=== PATIENT | female | born 1950 | race Two or more races ===

== ENCOUNTER 2024-01-29 06:38 | Inpatient (IN) | payer OTHER ==
[~2024-01-29] VITALS: Ht 167.6 cm; Wt 103.4 kg
[2024-01-29] MEDS: ceFAZolin 2 GM/D5W100ml 100 ML IV ONE (06:08)
[2024-01-29] MEDS: VANCOMYCIN HCL 1000 MG VL ONE (06:15)
[~2024-01-29 06:38] MED LIST: ATEN50TA PO; ATOR-507 PO; DAPA1TAB4 PO; ENAL1TAB42 PO; ESCI1TAB36 PO; GABA-1250 PO; LATA0.008 EACHEYE; METF-370 PO; NIFE90TA75 PO; TIMO0.5S28 EACHEYE; TRAZ-227 PO
[2024-01-29] MEDS ORDERED: KETAMINE 50mg/ML 10ml Vial 10 ML ONE (06:43)
[2024-01-29] MEDS ORDERED: ONDANSETRON HCL 4 MG/2 ML VIAL ONE (06:48)
[2024-01-29] MEDS ORDERED: GLYCOPYRROLATE 0.2 MG/ML 1ML VIAL ONE (06:48)
[2024-01-29] MEDS ORDERED: LIDOCAINE 1% INJ PF 5ML AMP ONE (06:48)
[2024-01-29] MEDS ORDERED: DexAMETHasone SOD PHOS 10MG/1ML VIAL INJ ONE (06:48)
[2024-01-29] MEDS ORDERED: PROPOFOL 10 MG/ML 20 ML IV ONE ×3 (06:48→08:43)
[2024-01-29] MEDS: TRANEXAMIC ACID 20 ML ONE (06:49)
[2024-01-29] MEDS ORDERED: KETOROLAC TROMETH 30 MG/ML 1ML VIAL ONE (06:51)
[2024-01-29] MEDS: DexAMETHasone SOD PHOS 4 MG/1ML SDV INJ ONE (07:07)
[2024-01-29] MEDS: BUPIVACAINE HCL 50 ML ONE (07:07)
[2024-01-29] MEDS: BUPIVACAINE 0.25% INJ 50ML VIAL ONE ×2 (07:07→08:25)
[2024-01-29] MEDS: EPINEPHrine HCL 1 MG/1 ML AMP ONE (07:07)
[2024-01-29] MEDS: CELECOXIB 100 MG CAP PO ONE (07:15)
[2024-01-29] MEDS: ACETAMINOPHEN IV 1000 MG/100ML (10MG/ML) IV ONE (07:15)
[2024-01-29] MEDS: PREGABALIN CAPSULE 75 MG CAP PO ONE (07:15)
[2024-01-29] MEDS: PREGABALIN CAPSULE 75 MG CAP ONE (07:18)
[2024-01-29] MEDS: CELECOXIB 100 MG CAP ONE (07:18)
[2024-01-29] MEDS: ACETAMINOPHEN IV 100 ML IV ONE (07:19)
[2024-01-29] MEDS: CEFEPIME 1GM/ 50ML 50 ML IV ONE (07:20)
[2024-01-29] MEDS ORDERED: DEXTROSE (50%) 50ML SYRG IV PRN (07:45)
[2024-01-29] MEDS ORDERED: ceFAZolin 1GM/50ML 50 ML IV SCH (07:45)
[2024-01-29] MEDS ORDERED: ePHEDrine SULFATE 50 MG/ML AMP ONE (07:54)
[2024-01-29] MEDS ORDERED: fentaNYL CITRATE 100 MCG/2 ML VL ONE (08:21)
[2024-01-29] MEDS: MORPHINE SULF PF 5 MG/10 ML VIAL ONE (08:25)
[2024-01-29] MEDS: KETOROLAC TROMETH 30 MG/ML 1ML VIAL ONE (08:25)
[2024-01-29] MEDS ORDERED: ESMOLOL HCL 10 ML IV ONE (08:28)
--- NOTE | 2024-01-29 09:20 | DVH ---
Left hip radiograph CLINICAL INDICATION: SURGERY TECHNIQUE: 1 radiographic views of the left hip were obtained. Comparison: None FINDINGS: Post left hip arthroplasty. There is no evidence of acute fracture or dislocation. The visualized joint space is well maintained. The alignment is anatomical. Small volume gas and fluid in the joint space IMPRESSION: Expected findings post left hip arthroplasty.
[2024-01-29] MEDS ORDERED: NALOXONE HCL 0.4 MG/ML VIAL IV PRN (09:30)
[2024-01-29] MEDS ORDERED: FLUMAZENIL 0.1 MG/ML INJ 10ML MDV IV PRN (09:30)
[2024-01-29] MEDS ORDERED: hydrALAZINE HCL 20 MG/ML VL IV PRN (09:30)
[2024-01-29] MEDS ORDERED: ONDANSETRON HCL 4 MG/2 ML VIAL IV PRN (09:30)
[2024-01-29] MEDS ORDERED: HYDROmorphone HCL 2 MG/ML VL/or syr IV PRN (09:30)
[2024-01-29] MEDS ORDERED: fentaNYL CITRATE 100 MCG/2 ML VL IV PRN (09:30)
[2024-01-29] MEDS ORDERED: ePHEDrine SULFATE 50 MG/ML AMP IV PRN (09:30)
--- NOTE | 2024-01-29 10:17 | DVH ---
CLINICAL INDICATION: sp Left JOSE TECHNIQUE: XY PELVIS AP Comparison: None FINDINGS/IMPRESSION: There is no evidence of acute fracture or dislocation. Left total hip arthroplasty. The alignment is anatomical. There is no radiopaque foreign body.
--- NOTE | 2024-01-29 10:18 | DVHHP2 ---
History of Present Illness History of Present Illness A 73-year-old female patient with multiple comorbidities; who was admitted after elective surgery of left hip total arthroplasty. The patient was seen and examined in PACU. Cardiovascular: HTN, hyperipidemia Psych: Depression Endocrine: Diabetes (Mellitus Type 2), Other (Morbid obesity) Past Medical History Glaucoma Smoke: No ALCOHOL: none Drugs: None Review of Systems Other Left hip pain Allergies: Coded Allergies: Sulfa Antibiotics (Verified Allergy, Intermediate, Itchiness, 01/27/24) Medications Current Medications Medications Dose Ordered Sig/Khurram Route Start Time Stop Time Status Last Admin Dose Admin Enalapril Maleate 20 mg DAILY PO 01/29/24 10:00 Gabapentin 300 mg TID PO 01/29/24 14:00 UNV Latanoprost 1 drop QPM EACHEYE 01/29/24 18:00 Patient Own Medication 50 mg DAILY PO 01/29/24 10:00 UNV Patient Own Medication 1 tab QPM PO 01/29/24 18:00 UNV Patient Own Medication 1 tab DAILY PO 01/29/24 10:00 UNV Patient Own Medication 1 tab DAILY PO 01/29/24 10:00 UNV Patient Own Medication 1 drop QAM EACHEYE 01/30/24 07:00 UNV Lactated Ringer's 1,000 ml @ 100 mls/hr Q10H IV 01/29/24 07:45 Sodium Chloride 10 ml Q8HR IV 01/29/24 14:00 Cefazolin Sodium 50 ml @ 50 mls/hr Q6H IV 01/29/24 07:45 01/29/24 20:44 UNV Oxycodone/ Acetaminophen 1 tab Q4HP PRN PO 01/29/24 07:45 Hydromorphone HCl 1 mg Q2HP PRN IV 01/29/24 07:45 Ondansetron HCl 4 mg Q6HP PRN IV 01/29/24 07:45 Docusate Sodium 100 mg Q12HR PO 01/29/24 10:00 Enoxaparin Sodium 40 mg DAILY SC 01/29/24 10:00 UNV Diagnostic Test (Pha) 1 strip ACHS 01/29/24 11:30 Insulin Human Regular ACHS SC 01/29/24 11:30 Dextrose 50 ml UD PRN IV 01/29/24 07:45 Cefazolin Sodium/ Dextrose 50 ml @ 50 mls/hr Q8HR IV 01/29/24 14:00 01/30/24 06:59 UNV Cefepime HCl 50 ml @ 12.5 mls/hr DAILY IV 01/29/24 10:00 UNV Hydralazine HCl 5 mg Q10M PRN IV 01/29/24 09:30 01/29/24 10:21 Fentanyl Citrate 25 mcg Q1HP PRN IV 01/29/24 09:30 01/29/24 09:31 UNV Hydromorphone HCl 0.5 mg Q10M PRN IV 01/29/24 09:30 01/29/24 10:11 UNV Oxycodone HCl 10 mg ONCE PRN PO 01/29/24 09:30 UNV Exam Vital Signs Vital Signs Date Time Temp Pulse Resp B/P (MAP) Pulse Ox O2 Delivery O2 Flow Rate FiO2 01/29/24 06:47 97.7 67 21 145/79 (101) 97 97.7 Exam Female nursing staff as a restrike hammer operator General Appearance: Alert, Oriented X3, Cooperative, No acute distress HEENT: Atraumatic Respiratory: Clear to auscultation, Normal air movement Cardiovascular: Regular rate, Normal S1, Normal S2 Abdominal: Normal bowel sounds, Soft, No tenderness Extremities: Other (Clean surgical dressing over left hip with no swelling but mild tenderness) Neuro: Normal speech, Cranial nerves 3-12 NL Psych/Mental Status: Mental status NL, Mood NL Labs/Xrays Imaging studies results and lab results reviewed Labs Test 01/29/24 09:46 Range/Units POC Glucose 139 H 70-106 mg/dl Assessment/Plan Assessment/Plan A 73-year-old female patient with multiple comorbidities; who was admitted after elective surgery of left hip total arthroplasty. The patient was seen and examined in PACU. #Left hip arthritis status post total hip arthroplasty on January 29, 2024; orthopedic surgery is following; operative note is not ready yet; physical therapy consulted; continue pain management as indicated #Normocytic anemia; most likely blood loss anemia; continue monitoring #Diabetes mellitus type 2 with diabetic neuropathy; continue insulin sliding scale with hypoglycemia protocol; continue gabapentin; continue monitoring #Suspected MIRA; most likely vasomotor nephropathy; avoid nephrotoxic agents; continue monitoring #Essential hypertension; continue antihypertensive medications and adjust accordingly; continue monitoring #Dyslipidemia; continue statin; continue monitoring #Glaucoma; continue eyedrops; continue monitoring #Depression; no suicide ideation/plan; continue antidepressant; continue monitoring #Morbid obesity with metabolic syndrome; counseled the patient on the importance of adopting healthy lifestyle with diet and exercise in order to lose weight; continue monitoring #Discharge planning; consulted Shirt Cleaner; continue monitoring Goals of care discussion for 20 minutes; full code. Late Entry. This medical document was created using an electronic medical record system with computerized dictation system. Although this document has been carefully reviewed, there might still be some phonetic and typographical errors. These areas are purely typographical due to imperfections of the software programs, and do not reflect any compromise in the patient's medical care. Plan discussed with: Patient, Other (Nurse) Date of Service: Jan 29, 2024 Billing Provider: DEVYN ARREAGA MD Common Visit Codes: 11613-PTCLMIE INP/OBS CARE (HIGH) Secondary Visit Codes: 50996-[id number] CARE PLAN 30 MINUTES (20 minutes) DEVYN ARREAGA MD Jan 29, 2024 10:18
[2024-01-29] MEDS: HYDROmorphone HCL 2 MG/ML VL/or syr ONE (10:22)
[2024-01-29 14:54] LABS: Basophils # (auto) 0 10 ^3/uL (0-0.2); Basophils % (auto) 0.1 % (0.0-2.0); Eosinophils # (auto) 0 10 ^3/uL (0-0.8); Hematocrit 35.4 % (36.0-46.0); Hemoglobin 11.5 g/dL (12.2-16.2); Lymphocytes % (auto) 7.6 % (10.0-50.0); Mean Corpuscular Hemoglobin 27.9 pg (28.0-32.0); Mean Corpuscular Hgb Conc. 32.5 g/dL (32.0-36.0); Mean Corpuscular Volume 85.9 fL (80.0-100.0); Monocytes # (auto) 0.2 10 ^3/uL (0-1.3); Monocytes % (auto) 1.5 % (0.0-12.0); Neutrophils # (auto) 11.6 10 ^3/uL (1.6-8.6); Neutrophils % (auto) 90.8 % (37.0-80.0); Platelet Count (auto) 354 10^3/uL (140-450); Red Blood Cells 4.12 10^6/uL (4.0-5.20); Red Cell Distribution Width 14.7 % (11.8-14.3); White Blood Cell 12.8 10^3/uL (4.4-10.8)
[2024-01-29 15:16] LABS: Alanine Aminotransferase 21 U/L (7-40); Albumin 3.7 g/dL (3.2-4.8); Alkaline Phosphatase 56 U/L (46-116); Anion Gap 6 (5-15); Aspartate Aminotransferase 26 U/L (13-40); BUN/Creatinine Ratio 16.2 (10.0-20.0); Bilirubin, Total 0.3 mg/dL (0.2-1.0); Blood Urea Nitrogen 16 mg/dL (9-23); Calcium 9.2 mg/dL (8.7-10.4); Carbon Dioxide 29 mmol/L (20-31); Chloride 101 mmol/L (98-107); Potassium 4.7 mmol/L (3.5-5.1); Sodium 136 mmol/L (136-145); Total Protein 7.4 g/dL (5.7-8.2)
[2024-01-29 15:18] LABS: Glucose 197 mg/dL (74-106)
[2024-01-29 15:22] VITALS: BP 146/70; PULSE 68; RESP 16; TEMP 97.6; O2SAT 95
[2024-01-29] MEDS ORDERED: ENAL1TAB42 PO (16:22)
[2024-01-29 17:00] VITALS: BP 146/70; PULSE 68; RESP 16; TEMP 97.6; O2SAT 95
[2024-01-29] MEDS: ACCU-CHEK COMFORT CURVE STRIP VI SCH (17:13)
[2024-01-29] MEDS ORDERED: LATANOPROST 0.005 % OPTH(EYE) SOL 2.5ML EACHEYE SCH (18:00)
[2024-01-29] MEDS: LACTATED RINGER'S 1,000 ML IV SCH (18:17)
[2024-01-29] MEDS: InsuLIN REG 1unit/0.01ml Soln (100units/ml) SC SCH (18:18)
[2024-01-29 21:00] VITALS: BP 128/66; PULSE 77; RESP 18; TEMP 98.7; O2SAT 95
[2024-01-29] MEDS: DOCUSATE SOD 100 MG CAP PO SCH (21:48)
[2024-01-29] MEDS: GABAPENTIN 300 MG CAP PO SCH (21:48)
[2024-01-29] MEDS: LATANOPROST 0.005 % OPTH(EYE) SOL 2.5ML EACHEYE SCH (21:49)
[2024-01-29] MEDS: ATORVASTATIN 20 MG TAB PO SCH (21:49)
[2024-01-29] MEDS: SODIUM CHLOR 0.9% PF (SALINE LOCK) 10ML VIAL/SYR IV SCH (22:00)
[2024-01-29] MEDS: ceFAZolin 2 GM/D5W50ml 50 ML IV SCH (22:37)
[2024-01-30] VITALS (8 sets, daily range): BP systolic 134–151; BP diastolic 54–64; PULSE 57–70; RESP 16–19; TEMP 97.5–98.4; O2SAT 94–100
--- NOTE | 2024-01-30 05:09 | DVHPN2 ---
Subjective Controlled left hip pain; tolerated physical therapy Reviewed: Care Plan, H&P, Labs, Medications, Previous Orders, Radiology, Other (Consultation) Changes from previous H/P or p: Changes Objective Vitals Vital Signs Date Time Temp Pulse Resp B/P (MAP) Pulse Ox O2 Delivery O2 Flow Rate FiO2 01/30/24 03:00 98.4 69 18 134/62 99 2.0 28 98.4 01/30/24 01:45 Nasal BiPAP Mask Intake/Output Intake and Output 01/30/24 07:00 Intake Total 50 ml Balance 50 ml Intake Oral 0 ml IV Total 50 ml # Voids 1 # Bowel Movements 1 Exam Female nursing staff as claim investigator General Appearance: Alert, Oriented X3, Cooperative, No acute distress HEENT: Atraumatic Lungs: Clear to auscultation, Normal air movement Cardiovascular: Regular rate, Normal S1, Normal S2 Abdomen: Normal bowel sounds, Soft, No tenderness Genitourinary: Other (Jones's catheter) Extremities: Other (Clean dressing of left hip with mild swelling/tenderness; no discharge/bleeding) Neuro: Normal speech, Cranial nerves 3-12 NL Psych/Mental Status: Mental status NL Medications Current Medications Medications Dose Ordered Sig/Khurram Route Start Time Stop Time Status Last Admin Dose Admin Enalapril Maleate 20 mg DAILY PO 01/29/24 10:00 Gabapentin 300 mg TID PO 01/29/24 14:00 01/29/24 21:48 300 MG Atenolol 50 mg DAILY PO 01/30/24 10:00 Atorvastatin Calcium 40 mg HS PO 01/29/24 22:00 01/29/24 21:49 40 MG Citalopram Hydrobromide 20 mg DAILY PO 01/30/24 10:00 Nifedipine 90 mg DAILY PO 01/30/24 10:00 Timolol Maleate 1 drop QAM EACHEYE 01/30/24 07:00 Lactated Ringer's 1,000 ml @ 100 mls/hr Q10H IV 01/29/24 07:45 01/29/24 18:17 100 MLS/HR Sodium Chloride 10 ml Q8HR IV 01/29/24 14:00 01/29/24 22:00 10 ML Oxycodone/ Acetaminophen 1 tab Q4HP PRN PO 01/29/24 07:45 Hydromorphone HCl 1 mg Q2HP PRN IV 01/29/24 07:45 Ondansetron HCl 4 mg Q6HP PRN IV 01/29/24 07:45 Docusate Sodium 100 mg Q12HR PO 01/29/24 10:00 01/29/24 21:48 100 MG Enoxaparin Sodium 40 mg DAILY SC 01/29/24 10:00 Diagnostic Test (Pha) 1 strip ACHS 01/29/24 11:30 01/29/24 22:00 1 STRIP Insulin Human Regular ACHS SC 01/29/24 11:30 01/29/24 22:18 4 UNITS Dextrose 50 ml UD PRN IV 01/29/24 07:45 Cefazolin Sodium/ Dextrose 50 ml @ 50 mls/hr Q8HR IV 01/29/24 14:00 01/30/24 06:59 01/29/24 22:37 50 MLS/HR Cefepime HCl 50 ml @ 12.5 mls/hr DAILY IV 01/29/24 10:00 Oxycodone HCl 10 mg ONCE PRN PO 01/29/24 09:30 Latanoprost 1 drop HS EACHEYE 01/29/24 22:00 01/29/24 21:49 1 DROP Laboratory Results Laboratory Tests 01/29/24 14:16 Chemistry Test 01/29/24 14:16 Albumin 3.7 g/dL (3.2-4.8) Calcium Level 9.2 mg/dL (8.7-10.4) Total Protein 7.4 g/dL (5.7-8.2) LFT Test 01/29/24 14:16 Alanine Aminotransferase (ALT) 21 U/L (7-40) Alkaline Phosphatase 56 U/L (46-116) Aspartate Amino Transferase (AST) 26 U/L (13-40) Total Bilirubin 0.3 mg/dL (0.2-1.0) Labs and/or images reviewed: Labs reviewed by me, Image(s) reviewed by me Assessment/Plan Assessment/Plan A 73-year-old female patient with multiple comorbidities; who was admitted after elective surgery of left hip total arthroplasty. The patient was seen and examined in PACU. #Left hip osteoarthritis with left hip pain status post total hip arthroplasty on January 29, 2024; orthopedic surgery is following; physical therapy is following; continue pain management as indicated #Normocytic anemia; most likely blood loss anemia; continue monitoring #MIRA with hyperkalemia; likely vasomotor nephropathy; in the setting of acute urinary retention; very mild; Jones's catheter; avoid nephrotoxic agents; continue monitoring #Acute urinary retention; Jones's catheter inserted; ordered renal ultrasound; continue monitoring #Diabetes mellitus type 2 with diabetic neuropathy; continue insulin sliding scale with hypoglycemia protocol; continue gabapentin; continue monitoring #Essential hypertension; continue antihypertensive medications and adjust accordingly; continue monitoring #Dyslipidemia; continue statin; continue monitoring #Glaucoma; continue eyedrops; continue monitoring #Depression; no suicide ideation/plan; continue antidepressant; continue monitoring #Morbid obesity with metabolic syndrome; counseled the patient on the importance of adopting healthy lifestyle with diet and exercise in order to lose weight; continue monitoring #Discharge planning; Stopping Builder is following; continue monitoring Late Entry. This medical document was created using an electronic medical record system with computerized dictation system. Although this document has been carefully reviewed, there might still be some phonetic and typographical errors. These areas are purely typographical due to imperfections of the software programs, and do not reflect any compromise in the patient's medical care. Plan discussed with: Patient, Other (Nurse) My Orders Orders - DEVYN ARREAGA MD Procedure Category Date Status Time Complete Blood Count LAB 01/30/24 Logged 04:00 Comprehensive LAB 01/30/24 Logged Metabolic Panel 04:00 Code Status CODE 01/29/24 Transmitted 19:15 Complete Blood Count LAB 01/31/24 Verified 04:00 Comprehensive LAB 01/31/24 Verified Metabolic Panel 04:00 Date of Service: Jan 30, 2024 Billing Provider: DEVYN ARREAGA MD Common Visit Codes: [id number] INP/OBS CARE(HIGH) DEVYN ARREAGA MD Jan 30, 2024 05:09
[2024-01-30] MEDS: TIMOLOL MAL 0.5% OPTH(EYE) SOL 5ML EACHEYE SCH (06:23)
--- NOTE | 2024-01-30 08:10 | DVHOP2 ---
Operative Report - 2 Report Details Date: 01/29/24 Preop Diagnosis: Left hip osteoarthritis, morbid obesity BMI above 39 Postop Diagnosis: as above Surgeon: Elton Madera MD Performance Improvement Analyst: Rock HEREDIA Anesthesiologist: Michelet HO Anesthesia: Regional Implant: [employer] see implant records Consent: The patient was informed of the risks and benefits of the procedure. These include but are not limited to complications of anesthesia, postoperative infection, incomplete relief of symptoms, recurrence of symptoms, damage to blood vessels, nerves and tendons, deep venous thrombosis, pulmonary embolism and possible need for repeat surgery in the future. Estimated Blood Loss: 300 cc Name of Procedure Performed Right total hip arthroplasty using computer navigation Procedure Details Procedure Details: FINDINGS: Extensive degenerative disease with grade IV changes INDICATION: This patient has failed non-operative treatments for hip arthritis and is now indicated for a total hip replacement. Preoperatively in the waiting area as well as in the office, I had a long discussion with the patient regarding the plan, the expected outcome, the risks, benefits, and alternatives of surgery. The risks include, but are not limited to, infection (which may require future surgery and removal of implants) , bleeding (which may require a transfusion), damage to nerves, arteries, veins, tendons, muscles and other adjacent structures. Also discussed the possibilities of dislocation, leg-length discrepancy, intraoperative fractures, implant loosening, heterotopic bone formation, and revision for variety of reasons, and medical complications etc. This was discussed at length and consent has been obtained. DESCRIPTION OF PROCEDURE: In the preoperative holding area, the consent was reviewed and the appropriate extremity was verified by the patient and marked with my initials. The patient was then transferred to the operating theatre. Appropriate anesthetia was induced. All bony prominences were well padded. A time out was performed verifying the side and site of surgery according to standard protocol. Preoperative antibiotics were given. Tranexamic acid was given. The patient was then placed in the lateral decubitus position and fixed with rigid pelvic fixation. All bony prominences were well padded and an axillary roll was placed. The affected hip area was then prepped and draped in the usual sterile fashion. Using an 11-blade, three stab incisions were made over the iliac crest. Two threaded guide pins were inserted into the crest confirming to be in bone. The pelvic array was attached to the pins and tightened. We made a standard posterolateral incision sharply through the skin and carried our dissection down through subcutaneous tissue to the underlying fascia achieving hemostasis where necessary. We incised the fascia in line with our incision. We identified and protected the sciatic nerve. We took down the external rotators and hip capsule from their insertion into the greater trochanter, tagged them and retracted them posteriorly for further protection of the sciatic nerve. A check point was placed into the greater trochanter and the hip center and leg length length were registered. We then dislocated the femoral head and performed an osteotomy of the femoral neck in accordance with our pre-operative plan. The labrum was excised with a long-handle knife, and we exposed the acetabular rim and cotyloid fossa. We then reamed up to our final size in accordance with the preoperative plan. We copiously irrigated and then impacted the final cup into position. We confirmed the position with the robotic navigation guidance. We placed acetabular dome screws into the posterior-superior quadrant in the usual fashion. We irrigated the cup and impacted the liner, checking to make sure it was well seated. Attention was then turned to the femur. We used a box osteotome followed by a canal finder to gain entry to the canal. Intramedullary contents were suctioned and care was taken to ensure they did not touch the tissues. We sequentially reamed until good cortical contact, then broached up to out final size. We trialed with the appropriate femoral neck and head and reduced the hip. The hip was taken through a full range of motion. The hip soft tissues were examined in extension and external rotation, the anterior capsule and IT band were palpated, and combined anteversion was determined to be 40 degrees. The hip was stable at maximum flexion, at 90 degrees of flexion and 45 degrees of internal rotation and the position of sleep. Leg lengths were restored as shown using the computer navigation, and the trial LTC matched preoperative and intraoperative templating. The hip was then dislocated and trial components removed. We copiously irrigated the wound and impacted the final femoral stem into position. The femoral head was impacted onto a clean and dry trunion and confirmed to be seated. The hip was reduced ensuring to tissues in the acetabular cup. We again brought it through a full functional range of motion and there was no evidence for dislocation, instability, or impingement. The checkpoint was removed. A dilute betadine solution (17.5mL in 500mL saline) was used to wash the joint and left to sit for 3 minutes. This was then irrigated out with copious amounts of pulse lavage. We sprinkled 1g vancomycin powder below the fascia and 1g above the fascia. We copiously irrigated the wound and soft tissues. The short external rotators and capsule were repaired to the greater trochanter through drill holes, and the quadratus was repaired. We palpated the sciatic nerve in continuity without tension. The fascia was closed with vicryl and a barbed suture. We closed over the fascia with vicryl suture and re-approximated the skin with brittni. A sterile dressing was placed. We returned the patient to the supine position. We verified all lower extremity compartments were soft and compressible and that we had intact distal pulses and checked our leg length congregation. We took an AP Pelvis in the operating room, which we reviewed prior to transfer. The patient was then transferred to the recovery room in stable condition. Condition Good Disposition Still a Patient ELTON MADERA MD Jan 30, 2024 08:10
--- NOTE | 2024-01-30 08:13 | DVHPN2 ---
Progress Note Date Seen: Jan 30, 2024 Medical Necessity Reason Pt with a Central, PICC or Fol: No Subjective Patient reports: No new complaints (patient has not gotten out of bed yet) Objective vital signs Vital Sign Date Time Temp Pulse Resp B/P (MAP) Pulse Ox O2 Delivery O2 Flow Rate FiO2 01/30/24 05:00 98.3 68 19 146/59 (88) 100 98.3 01/30/24 03:00 2.0 28 01/30/24 01:45 Nasal BiPAP Mask Total Intake and Output 01/29/24 01/29/24 01/30/24 15:00 23:00 07:00 Intake Total 0 ml 630 ml Balance 0 ml 630 ml medications Current Medications Medications Dose Ordered Sig/Khurram Route Start Time Stop Time Status Last Admin Dose Admin Enalapril Maleate 20 mg DAILY PO 01/29/24 10:00 Gabapentin 300 mg TID PO 01/29/24 14:00 01/30/24 06:18 300 MG Atenolol 50 mg DAILY PO 01/30/24 10:00 Atorvastatin Calcium 40 mg HS PO 01/29/24 22:00 01/29/24 21:49 40 MG Citalopram Hydrobromide 20 mg DAILY PO 01/30/24 10:00 Nifedipine 90 mg DAILY PO 01/30/24 10:00 Timolol Maleate 1 drop QAM EACHEYE 01/30/24 07:00 Lactated Ringer's 1,000 ml @ 100 mls/hr Q10H IV 01/29/24 07:45 01/30/24 06:20 100 MLS/HR Sodium Chloride 10 ml Q8HR IV 01/29/24 14:00 01/30/24 06:23 10 ML Oxycodone/ Acetaminophen 1 tab Q4HP PRN PO 01/29/24 07:45 Hydromorphone HCl 1 mg Q2HP PRN IV 01/29/24 07:45 Ondansetron HCl 4 mg Q6HP PRN IV 01/29/24 07:45 Docusate Sodium 100 mg Q12HR PO 01/29/24 10:00 01/29/24 21:48 100 MG Enoxaparin Sodium 40 mg DAILY SC 01/29/24 10:00 Diagnostic Test (Pha) 1 strip ACHS 01/29/24 11:30 01/30/24 06:29 1 STRIP Insulin Human Regular ACHS SC 01/29/24 11:30 01/29/24 22:18 4 UNITS Dextrose 50 ml UD PRN IV 01/29/24 07:45 Cefepime HCl 50 ml @ 12.5 mls/hr DAILY IV 01/29/24 10:00 Oxycodone HCl 10 mg ONCE PRN PO 01/29/24 09:30 Latanoprost 1 drop HS EACHEYE 01/29/24 22:00 01/29/24 21:49 1 DROP laboratory and microbiology Test 01/30/24 06:45 Range/Units Serum Glucose Pending Problem List/Assessment/Plan Problem List/Assessment/Plan 73 yo F with multiple medical issues sp complex Left JOSE due to her BMI being above 39 1. WBAT with walker 2. PT 3. pain control 4. dc planning when stable Plan discussed with: Patient My Orders My Orders Orders - HAMIDA MADERA MD Procedure Category Date Status Time L Hip 1v Xray XY 01/29/24 Resulted 08:15 * Desktop Support Engineer CONS 01/29/24 Transmitted Consult Apply Ice To Affected JANAY 01/29/24 In Process Area 09:30 Out Of Bed Ambulate JANAY 01/29/24 In Process 09:30 Up In Chair Qid JANAY 01/29/24 In Process 09:30 Consistent DIET 01/29/24 Transmitted Carb(Ccho)Diabetes Dinner Latanoprost (Xalatan) PHA 01/29/24 In Process 22:00 HAMIDA MADERA MD Jan 30, 2024 08:13
[2024-01-30 08:21] LABS: Basophils # (auto) 0 10 ^3/uL (0-0.2); Eosinophils # (auto) 0 10 ^3/uL (0-0.8); Eosinophils % (auto) 0.1 % (0.0-7.0); Hematocrit 32.3 % (36.0-46.0); Hemoglobin 10.4 g/dL (12.2-16.2); Lymphocytes # (auto) 2.4 10 ^3/uL (0.4-5.4); Lymphocytes % (auto) 19.3 % (10.0-50.0); Mean Corpuscular Hgb Conc. 32.2 g/dL (32.0-36.0); Mean Corpuscular Volume 86.8 fL (80.0-100.0); Monocytes # (auto) 1.5 10 ^3/uL (0-1.3); Monocytes % (auto) 12.6 % (0.0-12.0); Neutrophils # (auto) 8.3 10 ^3/uL (1.6-8.6); Platelet Count (auto) 316 10^3/uL (140-450); Red Blood Cells 3.73 10^6/uL (4.0-5.20); Red Cell Distribution Width 14.6 % (11.8-14.3); White Blood Cell 12.3 10^3/uL (4.4-10.8)
[2024-01-30 08:48] LABS: Alanine Aminotransferase 18 U/L (7-40); Albumin 3.5 g/dL (3.2-4.8); Alkaline Phosphatase 50 U/L (46-116); Anion Gap 7 (5-15); Aspartate Aminotransferase 25 U/L (13-40); BUN/Creatinine Ratio 18.4 (10.0-20.0); Bilirubin, Total 0.3 mg/dL (0.2-1.0); Blood Urea Nitrogen 18 mg/dL (9-23); Calcium 9.2 mg/dL (8.7-10.4); Carbon Dioxide 28 mmol/L (20-31); Chloride 102 mmol/L (98-107); Glucose 91 mg/dL (74-106); Sodium 137 mmol/L (136-145); Total Protein 6.9 g/dL (5.7-8.2)
[2024-01-30 08:56] LABS: Potassium 5.3 mmol/L (3.5-5.1)
[2024-01-30] MEDS: CEFEPIME 1GM/ 50ML 50 ML IV SCH (09:51)
[2024-01-30] MEDS: ENOXAPARIN SOD 40 MG/0.4 ML SYRINGE SC SCH (09:52)
[2024-01-30] MEDS: NIFEdipine ER 30 MG TAB PO SCH (09:53)
[2024-01-30] MEDS: ENALAPRIL MALEATE 10 MG TAB PO SCH (09:53)
[2024-01-30] MEDS: CITALOPRAM HYDROBR 20 MG TAB PO SCH (09:54)
[2024-01-30] MEDS: oxyCODONE HCL 5MG TAB PO PRN (09:55)
[2024-01-30] MEDS: ATENOLOL 25 MG TAB PO SCH (11:51)
[2024-01-30 16:33] LABS: Anion Gap 3 (5-15); Chloride 105 mmol/L (98-107); Sodium 140 mmol/L (136-145)
[2024-01-30 16:34] LABS: Calcium 9.3 mg/dL (8.7-10.4)
[2024-01-30 16:39] LABS: Glucose 100 mg/dL (74-106)
[2024-01-30 16:40] LABS: BUN/Creatinine Ratio 18.5 (10.0-20.0); Blood Urea Nitrogen 17 mg/dL (9-23)
[2024-01-30 16:44] LABS: Carbon Dioxide 32 mmol/L (20-31); Potassium 5.3 mmol/L (3.5-5.1)
[2024-01-30] MEDS: OXYCODONE W/ ACETAMINOPHEN 5/325MG TABLET PO PRN (22:25)
[2024-01-31 05:00] VITALS: BP 135/58; PULSE 61; RESP 17; TEMP 97.8; O2SAT 99
[2024-01-31 08:02] LABS: Basophils # (auto) 0.1 10 ^3/uL (0-0.2); Basophils % (auto) 0.5 % (0.0-2.0); Eosinophils # (auto) 0.2 10 ^3/uL (0-0.8); Eosinophils % (auto) 1.5 % (0.0-7.0); Hematocrit 31.1 % (36.0-46.0); Lymphocytes # (auto) 2.5 10 ^3/uL (0.4-5.4); Lymphocytes % (auto) 24.4 % (10.0-50.0); Mean Corpuscular Hemoglobin 27.8 pg (28.0-32.0); Mean Corpuscular Hgb Conc. 32.3 g/dL (32.0-36.0); Mean Corpuscular Volume 86.2 fL (80.0-100.0); Monocytes # (auto) 1.4 10 ^3/uL (0-1.3); Monocytes % (auto) 13.4 % (0.0-12.0); Neutrophils # (auto) 6.1 10 ^3/uL (1.6-8.6); Neutrophils % (auto) 60.2 % (37.0-80.0); Nucleated Red Blood Cells % 0.1 %; Platelet Count (auto) 294 10^3/uL (140-450); Red Blood Cells 3.61 10^6/uL (4.0-5.20); Red Cell Distribution Width 14.7 % (11.8-14.3); White Blood Cell 10.1 10^3/uL (4.4-10.8)
[2024-01-31 08:12] LABS: Alanine Aminotransferase 14 U/L (7-40); Albumin 3.3 g/dL (3.2-4.8); Alkaline Phosphatase 48 U/L (46-116); Anion Gap 2 (5-15); Aspartate Aminotransferase 22 U/L (13-40); BUN/Creatinine Ratio 12.7 (10.0-20.0); Blood Urea Nitrogen 10 mg/dL (9-23); Chloride 106 mmol/L (98-107); Glucose 89 mg/dL (74-106); Potassium 4.7 mmol/L (3.5-5.1); Sodium 140 mmol/L (136-145)
[2024-01-31 08:13] LABS: Bilirubin, Total 0.4 mg/dL (0.2-1.0); Total Protein 6.6 g/dL (5.7-8.2)
[2024-01-31 08:15] LABS: Carbon Dioxide 32 mmol/L (20-31)
--- NOTE | 2024-01-31 08:35 | DVHPN2 ---
Progress Note Date Seen: Jan 31, 2024 Medical Necessity Reason Pt with a Central, PICC or Fol: No Subjective Patient reports: No new complaints (pain as expected; worked with PT) Objective vital signs Vital Sign Date Time Temp Pulse Resp B/P (MAP) Pulse Ox O2 Delivery O2 Flow Rate FiO2 01/31/24 08:00 Room Air* 0 21 01/31/24 05:00 97.8 61 17 135/58 (83) 99 97.8 Total Intake and Output 01/30/24 01/30/24 01/31/24 15:00 23:00 07:00 Intake Total 50 ml 1780 ml 200 ml Output Total 1025 ml 2100 ml Balance 50 ml 755 ml -1900 ml medications Current Medications Medications Dose Ordered Sig/Khurram Route Start Time Stop Time Status Last Admin Dose Admin Enalapril Maleate 20 mg DAILY PO 01/29/24 10:00 01/30/24 09:53 20 MG Gabapentin 300 mg TID PO 01/29/24 14:00 01/31/24 05:48 300 MG Atenolol 50 mg DAILY PO 01/30/24 10:00 01/30/24 11:51 50 MG Atorvastatin Calcium 40 mg HS PO 01/29/24 22:00 01/30/24 22:25 40 MG Citalopram Hydrobromide 20 mg DAILY PO 01/30/24 10:00 01/30/24 09:54 20 MG Nifedipine 90 mg DAILY PO 01/30/24 10:00 01/30/24 09:53 90 MG Timolol Maleate 1 drop QAM EACHEYE 01/30/24 07:00 Lactated Ringer's 1,000 ml @ 100 mls/hr Q10H IV 01/29/24 07:45 01/30/24 18:43 100 MLS/HR Sodium Chloride 10 ml Q8HR IV 01/29/24 14:00 01/31/24 05:54 10 ML Oxycodone/ Acetaminophen 1 tab Q4HP PRN PO 01/29/24 07:45 01/30/24 22:25 1 TAB Hydromorphone HCl 1 mg Q2HP PRN IV 01/29/24 07:45 Ondansetron HCl 4 mg Q6HP PRN IV 01/29/24 07:45 Docusate Sodium 100 mg Q12HR PO 01/29/24 10:00 01/30/24 22:25 100 MG Enoxaparin Sodium 40 mg DAILY SC 01/29/24 10:00 01/30/24 09:52 40 MG Diagnostic Test (Pha) 1 strip ACHS 01/29/24 11:30 01/31/24 05:55 1 STRIP Insulin Human Regular ACHS SC 01/29/24 11:30 01/30/24 22:38 3 UNITS Dextrose 50 ml UD PRN IV 01/29/24 07:45 Cefepime HCl 50 ml @ 12.5 mls/hr DAILY IV 01/29/24 10:00 01/30/24 09:51 12.5 MLS/HR Oxycodone HCl 10 mg ONCE PRN PO 01/29/24 09:30 01/30/24 09:55 10 MG Latanoprost 1 drop HS EACHEYE 01/29/24 22:00 01/30/24 22:26 1 DROP laboratory and microbiology Laboratory Tests 01/31/24 06:56 Test 01/31/24 06:56 Range/Units Serum Glucose 89 74-106 mg/dL Problem List/Assessment/Plan Problem List/Assessment/Plan 73 yo F with multiple medical issues sp complex Left JOSE due to her BMI being above 39 1. WBAT with walker 2. PT 3. pain control 4. dc planning when stable -- patient wants SNF due to not having help at home Plan discussed with: Patient HAMIDA MADERA MD Jan 31, 2024 08:35
[2024-01-31 09:00] VITALS: BP 128/64; PULSE 68; RESP 17; TEMP 98.1; O2SAT 96
--- NOTE | 2024-01-31 09:53 | DVHPN2 ---
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 General Appearance: Alert, Oriented X3, Cooperative, No acute distress HEENT: Atraumatic Lungs: Clear to auscultation, Normal air movement Cardiovascular: Regular rate, Normal S1, Normal S2 Abdomen: Normal bowel sounds, Soft, No tenderness Genitourinary: Other (Jones's catheter) Extremities: Other (Clean dressing of left hip with mild swelling/tenderness; no discharge/bleeding) Neuro: Normal speech, Cranial nerves 3-12 NL Psych/Mental Status: Mental status NL Medications Current Medications Medications Dose Ordered Sig/Khurram Route Start Time Stop Time Status Last Admin Dose Admin Enalapril Maleate 20 mg DAILY PO 01/29/24 10:00 01/30/24 09:53 20 MG Gabapentin 300 mg TID PO 01/29/24 14:00 01/31/24 05:48 300 MG Atenolol 50 mg DAILY PO 01/30/24 10:00 01/30/24 11:51 50 MG Atorvastatin Calcium 40 mg HS PO 01/29/24 22:00 01/30/24 22:25 40 MG Citalopram Hydrobromide 20 mg DAILY PO 01/30/24 10:00 01/30/24 09:54 20 MG Nifedipine 90 mg DAILY PO 01/30/24 10:00 01/30/24 09:53 90 MG Timolol Maleate 1 drop QAM EACHEYE 01/30/24 07:00 Lactated Ringer's 1,000 ml @ 100 mls/hr Q10H IV 01/29/24 07:45 01/30/24 18:43 100 MLS/HR Sodium Chloride 10 ml Q8HR IV 01/29/24 14:00 01/31/24 05:54 10 ML Oxycodone/ Acetaminophen 1 tab Q4HP PRN PO 01/29/24 07:45 01/30/24 22:25 1 TAB Hydromorphone HCl 1 mg Q2HP PRN IV 01/29/24 07:45 Ondansetron HCl 4 mg Q6HP PRN IV 01/29/24 07:45 Docusate Sodium 100 mg Q12HR PO 01/29/24 10:00 01/30/24 22:25 100 MG Enoxaparin Sodium 40 mg DAILY SC 01/29/24 10:00 01/30/24 09:52 40 MG Diagnostic Test (Pha) 1 strip ACHS 01/29/24 11:30 01/31/24 05:55 1 STRIP Insulin Human Regular ACHS SC 01/29/24 11:30 01/30/24 22:38 3 UNITS Dextrose 50 ml UD PRN IV 01/29/24 07:45 Cefepime HCl 50 ml @ 12.5 mls/hr DAILY IV 01/29/24 10:00 01/30/24 09:51 12.5 MLS/HR Oxycodone HCl 10 mg ONCE PRN PO 01/29/24 09:30 01/30/24 09:55 10 MG Latanoprost 1 drop HS EACHEYE 01/29/24 22:00 01/30/24 22:26 1 DROP Laboratory Results Laboratory Tests 01/31/24 06:56 Chemistry Test 01/30/24 15:58 01/31/24 06:56 Calcium Level 9.3 mg/dL (8.7-10.4) 9.0 mg/dL (8.7-10.4) Albumin 3.3 g/dL (3.2-4.8) Total Protein 6.6 g/dL (5.7-8.2) LFT Test 01/31/24 06:56 Alanine Aminotransferase (ALT) 14 U/L (7-40) Alkaline Phosphatase 48 U/L (46-116) Aspartate Amino Transferase (AST) 22 U/L (13-40) Total Bilirubin 0.4 mg/dL (0.2-1.0) Labs and/or images reviewed: Labs reviewed by me, Image(s) reviewed by me Assessment/Plan Assessment/Plan A 73-year-old female patient with multiple comorbidities; who was admitted after elective surgery of left hip total arthroplasty. The patient was seen and examined in PACU. #Left hip osteoarthritis with left hip pain status post total hip arthroplasty on January 29, 2024; orthopedic surgery is following; physical therapy is following; continue pain management as indicated #Normocytic anemia; most likely blood loss anemia; continue monitoring #MIRA with hyperkalemia; likely vasomotor nephropathy; in the setting of acute urinary retention; hyperkalemia resolved; MIRA resolving; Jones's catheter; avoid nephrotoxic agents; continue monitoring #Acute urinary retention; Jones's catheter in place; continue monitoring #Diabetes mellitus type 2 with diabetic neuropathy; continue insulin sliding scale with hypoglycemia protocol; continue gabapentin; continue monitoring #Essential hypertension; continue antihypertensive medications and adjust accordingly; continue monitoring #Dyslipidemia; continue statin; continue monitoring #Glaucoma; continue eyedrops; continue monitoring #Depression; no suicide ideation/plan; continue antidepressant; continue monitoring #Morbid obesity with metabolic syndrome; counseled the patient on the importance of adopting healthy lifestyle with diet and exercise in order to lose weight; continue monitoring #Discharge planning; Alliance Director is following; continue monitoring New consult for Social Service was placed for SNF placement for PT/Rehab as per patient's preference as per Orthopedic surgery Late Entry. This medical document was created using an electronic medical record system with computerized dictation system. Although this document has been carefully reviewed, there might still be some phonetic and typographical errors. These areas are purely typographical due to imperfections of the software programs, and do not reflect any compromise in the patient's medical care. Plan discussed with: Patient, Other (Nurse) My Orders Orders - DEVYN ARREAGA MD Procedure Category Date Status Time Basic Metabolic Panel LAB 02/01/24 Verified 04:00 Comprehensive LAB 02/01/24 Verified Metabolic Panel 04:00 * [facility] Director CONS 01/31/24 Transmitted Consult Date of Service: Jan 31, 2024 Billing Provider: DEVYN ARREAGA MD Common Visit Codes: [id number] INP/OBS CARE(HIGH) DEVYN ARREAGA MD Jan 31, 2024 09:53
[2024-01-31 13:00] VITALS: BP 131/90; PULSE 56; RESP 17; TEMP 99.8; O2SAT 94
[2024-01-31 17:00] VITALS: BP 133/61; PULSE 57; RESP 17; TEMP 99.3; O2SAT 94
[2024-01-31 20:00] VITALS: PULSE 65; PULSE 82; RESP 17; O2SAT 93; O2SAT 94
[2024-01-31 21:00] VITALS: BP 119/54; PULSE 65; RESP 17; TEMP 99.8; O2SAT 93
[2024-02-01] VITALS (7 sets, daily range): BP systolic 122–135; BP diastolic 49–66; PULSE 58–76; RESP 16–18; TEMP 97.9–98.6; O2SAT 93–99
[2024-02-01 07:45] LABS: Alanine Aminotransferase 15 U/L (7-40); Albumin 3.5 g/dL (3.2-4.8); Alkaline Phosphatase 53 U/L (46-116); Anion Gap 3 (5-15); Aspartate Aminotransferase 22 U/L (13-40); BUN/Creatinine Ratio 11.4 (10.0-20.0); Bilirubin, Total 0.5 mg/dL (0.2-1.0); Blood Urea Nitrogen 9 mg/dL (9-23); Calcium 9.3 mg/dL (8.7-10.4); Chloride 103 mmol/L (98-107); Glucose 103 mg/dL (74-106); Potassium 3.9 mmol/L (3.5-5.1); Sodium 138 mmol/L (136-145); Total Protein 6.9 g/dL (5.7-8.2)
[2024-02-01 08:00] LABS: Carbon Dioxide 32 mmol/L (20-31)
--- NOTE | 2024-02-01 14:19 | DVHPN2 ---
Subjective Continues to report having pain, minimal walking, constipation Reviewed: Care Plan, H&P, Labs, Medications, Previous Orders, Radiology, Other (Consultation) Changes from previous H/P or p: No Changes General: Per HPI Objective Vitals Vital Signs Date Time Temp Pulse Resp B/P (MAP) Pulse Ox O2 Delivery O2 Flow Rate FiO2 02/01/24 12:39 98.6 58 18 133/62 (85) 94 98.6 02/01/24 07:30 Room Air* 0 21 Intake/Output Intake and Output 02/01/24 07:00 Intake Total 1375 ml Output Total 2600 ml Balance -1225 ml Intake Oral 1325 ml IV Total 50 ml Output Urine Total 2600 ml General Appearance: Alert, Oriented X3, Cooperative, No acute distress HEENT: Atraumatic, PERRLA Lungs: Clear to auscultation, Normal air movement Cardiovascular: Regular rate, Normal S1, Normal S2 Abdomen: Normal bowel sounds, Soft, No tenderness Genitourinary: Other (Jones's catheter) Extremities: Other (Clean dressing of left hip with mild swelling/tenderness; no discharge/bleeding) Neuro: Normal speech, Cranial nerves 3-12 NL Psych/Mental Status: Mental status NL, Mood NL Medications Current Medications Medications Dose Ordered Sig/Khurram Route Start Time Stop Time Status Last Admin Dose Admin Enalapril Maleate 20 mg DAILY PO 01/29/24 10:00 02/01/24 09:42 20 MG Gabapentin 300 mg TID PO 01/29/24 14:00 02/01/24 06:18 300 MG Atenolol 50 mg DAILY PO 01/30/24 10:00 02/01/24 09:42 50 MG Atorvastatin Calcium 40 mg HS PO 01/29/24 22:00 01/31/24 21:03 40 MG Citalopram Hydrobromide 20 mg DAILY PO 01/30/24 10:00 02/01/24 09:44 20 MG Nifedipine 90 mg DAILY PO 01/30/24 10:00 02/01/24 09:42 90 MG Timolol Maleate 1 drop QAM EACHEYE 01/30/24 07:00 Sodium Chloride 10 ml Q8HR IV 01/29/24 14:00 02/01/24 06:30 10 ML Oxycodone/ Acetaminophen 1 tab Q4HP PRN PO 01/29/24 07:45 02/01/24 11:02 1 TAB Hydromorphone HCl 1 mg Q2HP PRN IV 01/29/24 07:45 Ondansetron HCl 4 mg Q6HP PRN IV 01/29/24 07:45 Docusate Sodium 100 mg Q12HR PO 01/29/24 10:00 02/01/24 09:41 100 MG Enoxaparin Sodium 40 mg DAILY SC 01/29/24 10:00 02/01/24 09:42 40 MG Diagnostic Test (Pha) 1 strip ACHS 01/29/24 11:30 02/01/24 11:02 1 STRIP Insulin Human Regular ACHS SC 01/29/24 11:30 01/31/24 20:59 3 UNITS Dextrose 50 ml UD PRN IV 01/29/24 07:45 Cefepime HCl 50 ml @ 12.5 mls/hr DAILY IV 01/29/24 10:00 02/01/24 09:43 12.5 MLS/HR Oxycodone HCl 10 mg ONCE PRN PO 01/29/24 09:30 01/30/24 09:55 10 MG Latanoprost 1 drop HS EACHEYE 01/29/24 22:00 01/31/24 21:07 1 DROP Laboratory Results Laboratory Tests 01/31/24 06:56 02/01/24 06:49 Chemistry Test 02/01/24 06:49 Albumin 3.5 g/dL (3.2-4.8) Calcium Level 9.3 mg/dL (8.7-10.4) Total Protein 6.9 g/dL (5.7-8.2) LFT Test 02/01/24 06:49 Alanine Aminotransferase (ALT) 15 U/L (7-40) Alkaline Phosphatase 53 U/L (46-116) Aspartate Amino Transferase (AST) 22 U/L (13-40) Total Bilirubin 0.5 mg/dL (0.2-1.0) Labs and/or images reviewed: Labs reviewed by me, Image(s) reviewed by me Assessment/Plan Assessment/Plan Impression: -total right hip arthroplasty -osteoarthritis -obesity -primary hypertension -diabetes mellitus -depression Plan: -patient with minimal ambulation and no assistance at home. Patient currently pending transfer to correction facility -regular insulin sliding scale -pain management -bowel regimen -social service consultation for sniff placement -PUD, DVT prophylaxis Total time spent with patient discussing and formulating plan of care: 35 minutes. This medical document was created using an electronic medical record system with [employer] dictation system. Although this document has been carefully reviewed, there may still be some phonetic and typographical errors. These areas are purely typographical due to imperfections of the software programs, and do not reflect any compromise in the patient's medical care. Plan discussed with: Patient, Other (RN) My Orders Orders - ARMIN DAWN NP Procedure Category Date Status Time Lactulose Oral PHA 02/01/24 Logged 13:30 Discharge DISCHARGE 02/01/24 Transmitted 13:25 Date of Service: Feb 01, 2024 Billing Provider: ARMIN DAWN NP Common Visit Codes: [id number] INP/OBS CARE(HIGH) ARMIN DAWN NP Feb 01, 2024 14:19
[2024-02-01] MEDS: LACTULOSE 20Gm/30ML SOLN PO ONE (16:53)
[2024-02-01] MEDS: HYDROmorphone HCL 2 MG/ML VL/or syr IV PRN (23:14)
[2024-02-01] MEDS: ONDANSETRON HCL 4 MG/2 ML VIAL IV PRN (23:14)
[2024-02-02] VITALS (7 sets, daily range): BP systolic 114–142; BP diastolic 50–62; PULSE 61–74; RESP 16–18; TEMP 98–99.3; O2SAT 94–99
--- NOTE | 2024-02-02 06:59 | DVHPN2 ---
Progress Note Date Seen: Feb 02, 2024 Medical Necessity Reason Pt with a Central, PICC or Fol: No Subjective Patient reports: No new complaints, Feels better Objective vital signs Vital Sign Date Time Temp Pulse Resp B/P (MAP) Pulse Ox O2 Delivery O2 Flow Rate FiO2 02/02/24 05:00 98.3 61 17 114/54 (74) 96 98.3 02/01/24 20:00 Room Air* 0 21 Total Intake and Output 02/01/24 02/01/24 02/02/24 15:00 23:00 07:00 Intake Total 50 ml 680 ml 500 ml Output Total 900 ml 900 ml Balance 50 ml -220 ml -400 ml medications Current Medications Medications Dose Ordered Sig/Khurram Route Start Time Stop Time Status Last Admin Dose Admin Enalapril Maleate 20 mg DAILY PO 01/29/24 10:00 02/01/24 09:42 20 MG Gabapentin 300 mg TID PO 01/29/24 14:00 02/02/24 05:44 300 MG Atenolol 50 mg DAILY PO 01/30/24 10:00 02/01/24 09:42 50 MG Atorvastatin Calcium 40 mg HS PO 01/29/24 22:00 02/01/24 21:16 40 MG Citalopram Hydrobromide 20 mg DAILY PO 01/30/24 10:00 02/01/24 09:44 20 MG Nifedipine 90 mg DAILY PO 01/30/24 10:00 02/01/24 09:42 90 MG Timolol Maleate 1 drop QAM EACHEYE 01/30/24 07:00 Sodium Chloride 10 ml Q8HR IV 01/29/24 14:00 02/02/24 05:43 10 ML Oxycodone/ Acetaminophen 1 tab Q4HP PRN PO 01/29/24 07:45 02/01/24 21:17 1 TAB Hydromorphone HCl 1 mg Q2HP PRN IV 01/29/24 07:45 02/01/24 23:14 1 MG Ondansetron HCl 4 mg Q6HP PRN IV 01/29/24 07:45 02/01/24 23:14 4 MG Docusate Sodium 100 mg Q12HR PO 01/29/24 10:00 02/01/24 09:41 100 MG Enoxaparin Sodium 40 mg DAILY SC 01/29/24 10:00 02/01/24 09:42 40 MG Diagnostic Test (Pha) 1 strip ACHS 01/29/24 11:30 02/02/24 05:42 1 STRIP Insulin Human Regular ACHS SC 01/29/24 11:30 02/01/24 21:18 3 UNITS Dextrose 50 ml UD PRN IV 01/29/24 07:45 Cefepime HCl 50 ml @ 12.5 mls/hr DAILY IV 01/29/24 10:00 02/01/24 09:43 12.5 MLS/HR Oxycodone HCl 10 mg ONCE PRN PO 01/29/24 09:30 01/30/24 09:55 10 MG Latanoprost 1 drop HS EACHEYE 01/29/24 22:00 02/01/24 21:16 1 DROP Examination: GENERAL:Normal, MSK:Abnormal laboratory and microbiology Laboratory Tests 02/01/24 06:49 01/31/24 06:56 Test 02/01/24 06:49 Range/Units Serum Glucose 103 74-106 mg/dL Problem List/Assessment/Plan Problem List/Assessment/Plan 73 yo F with multiple medical issues sp complex Left JOSE due to her BMI being above 39 1. WBAT with walker 2. PT 3. pain control 4. dc planning when stable -- patient wants SNF due to not having help at home 5. continue dressing x 1 week then can put a dry sterile dressing in place 6. follow up with orthopedics in 10-14 days Plan discussed with: Patient HAMIDA MADERA MD Feb 02, 2024 06:59
--- NOTE | 2024-02-02 13:52 | DVHDS2 ---
Discharge Summary Date of Admission Jan 29, 2024 at 07:36 Date of Discharge: Feb 02, 2024 Admitting Diagnosis Severe left hip osteoarthritis Labs/Diagnostic Data: Laboratory Results Test 02/02/24 05:30 02/01/24 06:49 01/31/24 06:56 POC Glucose 104 mg/dl (70-106) Sodium Level 138 mmol/L (136-145) Potassium Level 3.9 mmol/L (3.5-5.1) Chloride Level 103 mmol/L (98-107) Carbon Dioxide Level 32 mmol/L (20-31) Anion Gap 3 (5-15) Blood Urea Nitrogen 9 mg/dL (9-23) Creatinine 0.79 mg/dL (0.550-1.02) Glomerular Filtration Rate Calc 78 mL/min (>90) BUN/Creatinine Ratio 11.4 (10.0-20.0) Serum Glucose 103 mg/dL (74-106) Calcium Level 9.3 mg/dL (8.7-10.4) Total Bilirubin 0.5 mg/dL (0.2-1.0) Aspartate Amino Transferase (AST) 22 U/L (13-40) Alanine Aminotransferase (ALT) 15 U/L (7-40) Alkaline Phosphatase 53 U/L (46-116) Total Protein 6.9 g/dL (5.7-8.2) Albumin 3.5 g/dL (3.2-4.8) White Blood Count 10.1 10^3/uL (4.4-10.8) Red Blood Count 3.61 10^6/uL (4.0-5.20) Hemoglobin 10.0 g/dL (12.2-16.2) Hematocrit 31.1 % (36.0-46.0) Mean Corpuscular Volume 86.2 fL (80.0-100.0) Mean Corpuscular Hemoglobin 27.8 pg (28.0-32.0) Mean Corpuscular Hemoglobin Concent 32.3 g/dL (32.0-36.0) Red Cell Distribution Width 14.7 % (11.8-14.3) Platelet Count 294 10^3/uL (140-450) Mean Platelet Volume 8.0 fL (6.9-10.8) Neutrophils (%) (Auto) 60.2 % (37.0-80.0) Lymphocytes (%) (Auto) 24.4 % (10.0-50.0) Monocytes (%) (Auto) 13.4 % (0.0-12.0) Eosinophils (%) (Auto) 1.5 % (0.0-7.0) Basophils (%) (Auto) 0.5 % (0.0-2.0) Neutrophils # (Auto) 6.1 10 ^3/uL (1.6-8.6) Lymphocytes # (Auto) 2.5 10 ^3/uL (0.4-5.4) Monocytes # (Auto) 1.4 10 ^3/uL (0-1.3) Eosinophils # (Auto) 0.2 10 ^3/uL (0-0.8) Basophils # (Auto) 0.1 10 ^3/uL (0-0.2) Nucleated Red Blood Cells 0.1 % Other Laboratory Tests 02/01/24 06:49 01/31/24 06:56 Brief Hx & Hospital Course: History of Present Illness A 73-year-old female patient with multiple comorbidities; who was admitted after elective surgery of left hip total arthroplasty. The patient was seen and examined in PACU. Course of hospitalization: Postoperatively the patient had difficulty with ambulation. Given the patient's home support system/lack of, the decision was made to have the patient placed in his correction facility. Patient will be transferred for continuation of physical therapy as well as treatment of the patient's comorbidities including dyslipidemia, hypertension, as well as diabetes mellitus. Patient has been receiving physical therapy at this hospital, with some improvement. At this time she will be transferred to [facility]. Physical examination General: Alert and Oriented x3. No acute distress. Well-nourished. Eyes: EOMI. Anicteric. HENT: Moist mucous membranes. Lungs: Clear to auscultation bilaterally. No accessory muscle use. Cardiovascular: Regular rate and rhythm. No murmur. No JVD. Abdomen: Soft, non-tender and non-distended. No palpable masses. Extremities: No edema. Non-tender. Skin: No rashes or lesions. Warm. Neurologic: No focal neurological deficits. CN II-XII grossly intact, but not individually tested. Psychiatric: Cooperative. Appropriate mood and affect. Total time spent with patient discussing and formulating plan of care: 35 minutes. This medical document was created using an electronic medical record system with [employer] dictation system. Although this document has been carefully reviewed, there may still be some phonetic and typographical errors. These areas are purely typographical due to imperfections of the software programs, and do not reflect any compromise in the patient's medical care. Consults/Reason for consult Orthopedic surgery: Total left hip replacement Condition at Discharge: Good Final Diagnosis/Problems List Total hip replacement Secondary Diagnosis: -total right hip arthroplasty -osteoarthritis -obesity -primary hypertension -diabetes mellitus -depression Discharge Disposition: Correction Facility Discharge Instruct/Medications Diet: Consistent carbohydrate, Cardiac 2g Na,low cholest Activity: No Restrictions, As Tolerated Follow Up/Referral: Follow up with Orthopedic surgery in 1-2 weeks Medications: See medication reconciliation form 36 Discharge Statement: "Patient was advised to return to the ER or call 911 if any headaches, dizziness, shortness of breath, chest pain, abdominal pain, bleeding, fevers, or worsening of medical condition. Patient was counseled about treatment plan, medications, possible side effects, patientverbalized understanding. All questions were answered to the best of my ability. This discharge took greater then 30 minutes in planning, reviewing documentation, counseling the patient, and discussing with other team members." ASSESSMENT ASSESSMENT Assessment Total hip replacement Date of Service: Feb 02, 2024 Billing Provider: ARMIN DAWN NP Common Visit Codes: [id number] DISCH DAY >30min ARMIN DAWN NP Feb 02, 2024 13:52
[2024-02-02] MEDS: traMADol HCL 50 MG TAB PO PRN (21:24)
[2024-02-03] VITALS (7 sets, daily range): BP systolic 118–136; BP diastolic 54–57; PULSE 60–68; RESP 16–18; TEMP 97.9–98.8; O2SAT 95–99
[2024-02-04] VITALS (7 sets, daily range): BP systolic 124–148; BP diastolic 52–63; PULSE 60–70; RESP 16–21; TEMP 97.6–98.9; O2SAT 93–99
--- NOTE | 2024-02-04 09:47 | DVHPN2 ---
Subjective Continues to report having pain, minimal walking, constipation Reviewed: Care Plan, H&P, Labs, Medications, Previous Orders, Radiology, Other (Consultation) Changes from previous H/P or p: No Changes General: Per HPI Objective Vitals Vital Signs Date Time Temp Pulse Resp B/P (MAP) Pulse Ox O2 Delivery O2 Flow Rate FiO2 02/04/24 09:17 97.6 61 18 148/63 (91) 93 97.6 02/03/24 20:00 Room Air* 0 21 Intake/Output Intake and Output 02/04/24 07:00 Intake Total 1250 ml Output Total 1500 ml Balance -250 ml Intake Oral 1200 ml IV Total 50 ml Output Urine Total 1500 ml # Bowel Movements 1 General Appearance: Alert, Oriented X3, Cooperative, No acute distress HEENT: Atraumatic, PERRLA Lungs: Clear to auscultation, Normal air movement Cardiovascular: Regular rate, Normal S1, Normal S2 Abdomen: Normal bowel sounds, Soft, No tenderness Genitourinary: Other (Jones's catheter) Extremities: Other (Clean dressing of left hip with mild swelling/tenderness; no discharge/bleeding) Neuro: Normal speech, Cranial nerves 3-12 NL Psych/Mental Status: Mental status NL, Mood NL Medications Current Medications Medications Dose Ordered Sig/Khurram Route Start Time Stop Time Status Last Admin Dose Admin Enalapril Maleate 20 mg DAILY PO 01/29/24 10:00 02/03/24 09:40 20 MG Gabapentin 300 mg TID PO 01/29/24 14:00 02/04/24 05:45 300 MG Atenolol 50 mg DAILY PO 01/30/24 10:00 02/03/24 09:38 50 MG Atorvastatin Calcium 40 mg HS PO 01/29/24 22:00 02/03/24 21:55 40 MG Citalopram Hydrobromide 20 mg DAILY PO 01/30/24 10:00 02/03/24 09:40 20 MG Nifedipine 90 mg DAILY PO 01/30/24 10:00 02/03/24 09:39 90 MG Timolol Maleate 1 drop QAM EACHEYE 01/30/24 07:00 Sodium Chloride 10 ml Q8HR IV 01/29/24 14:00 02/04/24 05:44 10 ML Hydromorphone HCl 1 mg Q2HP PRN IV 01/29/24 07:45 02/04/24 00:33 1 MG Ondansetron HCl 4 mg Q6HP PRN IV 01/29/24 07:45 02/04/24 00:42 4 MG Docusate Sodium 100 mg Q12HR PO 01/29/24 10:00 02/03/24 21:55 100 MG Enoxaparin Sodium 40 mg DAILY SC 01/29/24 10:00 02/03/24 09:41 40 MG Diagnostic Test (Pha) 1 strip ACHS 01/29/24 11:30 02/04/24 06:23 1 STRIP Insulin Human Regular ACHS SC 01/29/24 11:30 02/03/24 21:52 4 UNITS Dextrose 50 ml UD PRN IV 01/29/24 07:45 Cefepime HCl 50 ml @ 12.5 mls/hr DAILY IV 01/29/24 10:00 02/03/24 09:40 12.5 MLS/HR Oxycodone HCl 10 mg ONCE PRN PO 01/29/24 09:30 01/30/24 09:55 10 MG Latanoprost 1 drop HS EACHEYE 01/29/24 22:00 02/03/24 22:01 1 DROP Tramadol HCl 50 mg Q8HP PRN PO 02/02/24 21:00 02/04/24 05:49 50 MG Laboratory Results Laboratory Tests 01/31/24 06:56 02/01/24 06:49 Labs and/or images reviewed: Labs reviewed by me, Image(s) reviewed by me Assessment/Plan Assessment/Plan Impression: -total right hip arthroplasty -osteoarthritis -obesity -primary hypertension -diabetes mellitus -depression Plan: No change in a/P on 02/04/2024 -patient with minimal ambulation and no assistance at home. Patient currently pending transfer to [facility] facility -regular insulin sliding scale -pain management -bowel regimen -social service consultation for sniff placement -PUD, DVT prophylaxis Total time spent with patient discussing and formulating plan of care: 35 minutes. This medical document was created using an electronic medical record system with [employer] dictation system. Although this document has been carefully reviewed, there may still be some phonetic and typographical errors. These areas are purely typographical due to imperfections of the software programs, and do not reflect any compromise in the patient's medical care Plan discussed with: Patient, Other (RN) Date of Service: Feb 04, 2024 Billing Provider: ARMIN DAWN NP Common Visit Codes: [id number] INP/OBS CARE(HIGH) ARMIN DAWN NP Feb 04, 2024 09:47
--- NOTE | 2024-02-04 11:20 | PEER ---
Peer to Peer Review Time DATE: 02/04/24 TIME: 11:18 Review and Recommendations: Spoke with Dr. Miramontes, approved for inpatient due to Urinary Retention and Intractable Pain. JUDE BALDWIN MD Feb 04, 2024 11:20
[2024-02-04] MEDS: CALCIUM CARB 500 MG CHEW TAB PO ONE (13:01)
[2024-02-05 01:00] VITALS: BP 120/53; PULSE 66; RESP 20; TEMP 97.6; O2SAT 100
[2024-02-05 05:00] VITALS: BP 150/59; PULSE 71; RESP 18; TEMP 98; O2SAT 96
[2024-02-05 09:00] VITALS: BP 135/57; PULSE 78; RESP 16; TEMP 98; O2SAT 96
[2024-02-05 13:00] VITALS: BP 164/74; PULSE 71; RESP 16; TEMP 98.2; O2SAT 97
--- NOTE | 2024-02-05 16:51 | DVHPN2 ---
Subjective seen by me during rounds, pending transfer to [facility] Reviewed: Care Plan, H&P, Labs, Medications, Previous Orders, Radiology, Other (Consultation) Changes from previous H/P or p: No Changes General: Per HPI Objective Vitals Vital Signs Date Time Temp Pulse Resp B/P (MAP) Pulse Ox O2 Delivery O2 Flow Rate FiO2 02/05/24 13:00 98.2 71 16 164/74 (104) 97 98.2 02/04/24 20:00 Room Air* 0 21 Intake/Output Intake and Output 02/05/24 07:00 Intake Total 1050 ml Output Total 1500 ml Balance -450 ml Intake Oral 1000 ml IV Total 50 ml Output Urine Total 1500 ml General Appearance: Alert, Oriented X3, Cooperative, No acute distress HEENT: Atraumatic, PERRLA Lungs: Clear to auscultation, Normal air movement Cardiovascular: Regular rate, Normal S1, Normal S2 Abdomen: Normal bowel sounds, Soft, No tenderness Genitourinary: Other (Jones's catheter) Extremities: Other (Clean dressing of left hip with mild swelling/tenderness; no discharge/bleeding) Neuro: Normal speech, Cranial nerves 3-12 NL Psych/Mental Status: Mental status NL, Mood NL Medications Current Medications Medications Dose Ordered Sig/Khurram Route Start Time Stop Time Status Last Admin Dose Admin Enalapril Maleate 20 mg DAILY PO 01/29/24 10:00 02/05/24 10:20 20 MG Gabapentin 300 mg TID PO 01/29/24 14:00 02/05/24 15:11 300 MG Atenolol 50 mg DAILY PO 01/30/24 10:00 02/05/24 10:21 50 MG Atorvastatin Calcium 40 mg HS PO 01/29/24 22:00 02/04/24 21:33 40 MG Citalopram Hydrobromide 20 mg DAILY PO 01/30/24 10:00 02/05/24 10:22 20 MG Nifedipine 90 mg DAILY PO 01/30/24 10:00 02/05/24 10:21 90 MG Timolol Maleate 1 drop QAM EACHEYE 01/30/24 07:00 Sodium Chloride 10 ml Q8HR IV 01/29/24 14:00 02/05/24 15:08 10 ML Hydromorphone HCl 1 mg Q2HP PRN IV 01/29/24 07:45 02/04/24 00:33 1 MG Ondansetron HCl 4 mg Q6HP PRN IV 01/29/24 07:45 02/04/24 00:42 4 MG Docusate Sodium 100 mg Q12HR PO 01/29/24 10:00 02/05/24 10:22 100 MG Enoxaparin Sodium 40 mg DAILY SC 01/29/24 10:00 02/05/24 10:34 40 MG Diagnostic Test (Pha) 1 strip ACHS 01/29/24 11:30 02/05/24 11:33 1 STRIP Insulin Human Regular ACHS SC 01/29/24 11:30 02/03/24 21:52 4 UNITS Dextrose 50 ml UD PRN IV 01/29/24 07:45 Cefepime HCl 50 ml @ 12.5 mls/hr DAILY IV 01/29/24 10:00 02/05/24 10:22 12.5 MLS/HR Oxycodone HCl 10 mg ONCE PRN PO 01/29/24 09:30 01/30/24 09:55 10 MG Latanoprost 1 drop HS EACHEYE 01/29/24 22:00 02/04/24 21:33 1 DROP Tramadol HCl 50 mg Q8HP PRN PO 02/02/24 21:00 02/04/24 21:33 50 MG Laboratory Results Laboratory Tests 01/31/24 06:56 02/01/24 06:49 Assessment/Plan Assessment/Plan Impression: -total right hip arthroplasty -osteoarthritis -obesity -primary hypertension -diabetes mellitus -depression Plan: No change in a/P on 02/04/2024 -patient with minimal ambulation and no assistance at home. Patient currently pending transfer to assisted facility -regular insulin sliding scale -pain management -bowel regimen -social service consultation for sniff placement -PUD, DVT prophylaxis Plan discussed with: Patient Date of Service: Feb 05, 2024 Billing Provider: LEAH WILSON MD Common Visit Codes: [id number] SAME DATE (MOD) LEAH WILSON MD Feb 05, 2024 16:51
[2024-02-05 16:54] VITALS: BP 105/55; PULSE 62; RESP 16; TEMP 99.2; O2SAT 97
[2024-02-05 21:00] VITALS: BP 128/55; PULSE 68; RESP 20; TEMP 99; O2SAT 96
[2024-02-06 01:00] VITALS: BP_SYST 133; BP_SYST 97; BP_DIAS 60; BP_DIAS 62; PULSE 66; PULSE 88; RESP 16; RESP 18; TEMP 97.7; TEMP 98.4; O2SAT 95; O2SAT 97
[2024-02-06 05:00] VITALS: BP 150/70; PULSE 73; RESP 20; TEMP 97.9; O2SAT 97
[2024-02-06 09:00] VITALS: BP 126/58; PULSE 66; RESP 17; TEMP 98.3; O2SAT 97
[2024-02-06 13:00] VITALS: BP 121/59; PULSE 61; RESP 17; TEMP 98.8; O2SAT 95
--- NOTE | 2024-02-06 13:53 | DVHPN2 ---
Subjective seen by me during rounds, for snf transfer pending auth, meanwhile working with PT Reviewed: Care Plan, H&P, Labs, Medications, Previous Orders, Radiology, Other (Consultation) Changes from previous H/P or p: No Changes General: Per HPI Objective Vitals Vital Signs Date Time Temp Pulse Resp B/P (MAP) Pulse Ox O2 Delivery O2 Flow Rate FiO2 02/06/24 10:01 126/58 02/06/24 10:01 66 02/06/24 09:20 Room Air* 0 21 02/06/24 09:00 98.3 17 97 98.3 Intake/Output Intake and Output 02/06/24 07:00 Intake Total 1600 ml Output Total 2750 ml Balance -1150 ml Intake Oral 1550 ml IV Total 50 ml Output Urine Total 2750 ml General Appearance: Alert, Oriented X3, Cooperative, No acute distress HEENT: Atraumatic, PERRLA Lungs: Clear to auscultation, Normal air movement Cardiovascular: Regular rate, Normal S1, Normal S2 Abdomen: Normal bowel sounds, Soft, No tenderness Genitourinary: Other (Jones's catheter) Extremities: Other (Clean dressing of left hip with mild swelling/tenderness; no discharge/bleeding) Neuro: Normal speech, Cranial nerves 3-12 NL Psych/Mental Status: Mental status NL, Mood NL Medications Current Medications Medications Dose Ordered Sig/Khurram Route Start Time Stop Time Status Last Admin Dose Admin Enalapril Maleate 20 mg DAILY PO 01/29/24 10:00 02/06/24 10:01 20 MG Gabapentin 300 mg TID PO 01/29/24 14:00 02/06/24 06:29 300 MG Atenolol 50 mg DAILY PO 01/30/24 10:00 02/06/24 10:01 50 MG Atorvastatin Calcium 40 mg HS PO 01/29/24 22:00 02/05/24 22:00 40 MG Citalopram Hydrobromide 20 mg DAILY PO 01/30/24 10:00 02/06/24 09:59 20 MG Nifedipine 90 mg DAILY PO 01/30/24 10:00 02/06/24 10:01 90 MG Timolol Maleate 1 drop QAM EACHEYE 01/30/24 07:00 Sodium Chloride 10 ml Q8HR IV 01/29/24 14:00 02/06/24 06:29 10 ML Hydromorphone HCl 1 mg Q2HP PRN IV 01/29/24 07:45 02/04/24 00:33 1 MG Ondansetron HCl 4 mg Q6HP PRN IV 01/29/24 07:45 02/04/24 00:42 4 MG Docusate Sodium 100 mg Q12HR PO 01/29/24 10:00 02/06/24 09:59 100 MG Enoxaparin Sodium 40 mg DAILY SC 01/29/24 10:00 02/06/24 10:02 40 MG Diagnostic Test (Pha) 1 strip ACHS 01/29/24 11:30 02/06/24 06:29 1 STRIP Insulin Human Regular ACHS SC 01/29/24 11:30 02/05/24 22:14 3 UNITS Dextrose 50 ml UD PRN IV 01/29/24 07:45 Cefepime HCl 50 ml @ 12.5 mls/hr DAILY IV 01/29/24 10:00 02/06/24 10:02 12.5 MLS/HR Oxycodone HCl 10 mg ONCE PRN PO 01/29/24 09:30 01/30/24 09:55 10 MG Latanoprost 1 drop HS EACHEYE 01/29/24 22:00 02/05/24 21:59 1 DROP Tramadol HCl 50 mg Q8HP PRN PO 02/02/24 21:00 02/04/24 21:33 50 MG Laboratory Results Laboratory Tests 01/31/24 06:56 02/01/24 06:49 Assessment/Plan Assessment/Plan Impression: -total right hip arthroplasty -osteoarthritis -obesity -primary hypertension -diabetes mellitus -depression Plan: No change in a/P on 02/04/2024 -patient with minimal ambulation and no assistance at home. Patient currently pending transfer to halfway facility -regular insulin sliding scale -pain management -bowel regimen -social service consultation for sniff placement -PUD, DVT prophylaxis Plan discussed with: Patient Date of Service: Feb 06, 2024 Billing Provider: LEAH WILSON MD Common Visit Codes: [id number] INP/OBS CARE(MOD) LEAH WILSON MD Feb 06, 2024 13:53
[2024-02-06 16:57] VITALS: BP 109/56; PULSE 62; RESP 18; TEMP 97.2; O2SAT 97
[2024-02-06 21:00] VITALS: BP 123/56; PULSE 71; RESP 17; TEMP 98.7; O2SAT 95
[2024-02-07] VITALS (7 sets, daily range): BP systolic 107–130; BP diastolic 50–66; PULSE 55–64; RESP 16–20; TEMP 97.8–98.3; O2SAT 93–98
--- NOTE | 2024-02-07 15:18 | DVHPN2 ---
Subjective seen by me during rounds, for snf transfer pending auth, meanwhile working with PT Reviewed: Care Plan, H&P, Labs, Medications, Previous Orders, Radiology, Other (Consultation) Changes from previous H/P or p: No Changes General: Per HPI Objective Vitals Vital Signs Date Time Temp Pulse Resp B/P (MAP) Pulse Ox O2 Delivery O2 Flow Rate FiO2 02/07/24 13:00 97.9 55 17 107/50 (69) 96 97.9 02/07/24 08:00 Room Air* 0 21 Intake/Output Intake and Output 02/07/24 07:00 Intake Total 1140 ml Output Total 1250 ml Balance -110 ml Intake Oral 1090 ml IV Total 50 ml Output Urine Total 1250 ml # Voids 1 General Appearance: Alert, Oriented X3, Cooperative, No acute distress HEENT: Atraumatic, PERRLA Lungs: Clear to auscultation, Normal air movement Cardiovascular: Regular rate, Normal S1, Normal S2 Abdomen: Normal bowel sounds, Soft, No tenderness Genitourinary: Other (Jones's catheter) Extremities: Other (Clean dressing of left hip with mild swelling/tenderness; no discharge/bleeding) Neuro: Normal speech, Cranial nerves 3-12 NL Psych/Mental Status: Mental status NL, Mood NL Medications Current Medications Medications Dose Ordered Sig/Khurram Route Start Time Stop Time Status Last Admin Dose Admin Enalapril Maleate 20 mg DAILY PO 01/29/24 10:00 02/07/24 08:34 20 MG Gabapentin 300 mg TID PO 01/29/24 14:00 02/07/24 13:02 300 MG Atenolol 50 mg DAILY PO 01/30/24 10:00 02/07/24 08:32 50 MG Atorvastatin Calcium 40 mg HS PO 01/29/24 22:00 02/06/24 21:29 40 MG Citalopram Hydrobromide 20 mg DAILY PO 01/30/24 10:00 02/07/24 08:34 20 MG Nifedipine 90 mg DAILY PO 01/30/24 10:00 02/07/24 08:33 90 MG Timolol Maleate 1 drop QAM EACHEYE 01/30/24 07:00 Sodium Chloride 10 ml Q8HR IV 01/29/24 14:00 02/07/24 11:07 10 ML Ondansetron HCl 4 mg Q6HP PRN IV 01/29/24 07:45 02/04/24 00:42 4 MG Docusate Sodium 100 mg Q12HR PO 01/29/24 10:00 02/07/24 08:34 100 MG Enoxaparin Sodium 40 mg DAILY SC 01/29/24 10:00 02/07/24 08:38 40 MG Diagnostic Test (Pha) 1 strip ACHS 01/29/24 11:30 02/07/24 11:07 1 STRIP Insulin Human Regular ACHS SC 01/29/24 11:30 02/06/24 22:34 2 UNITS Dextrose 50 ml UD PRN IV 01/29/24 07:45 Cefepime HCl 50 ml @ 12.5 mls/hr DAILY IV 01/29/24 10:00 02/07/24 08:35 12.5 MLS/HR Latanoprost 1 drop HS EACHEYE 01/29/24 22:00 02/06/24 21:28 1 DROP Tramadol HCl 50 mg Q8HP PRN PO 02/02/24 21:00 02/06/24 22:25 50 MG Laboratory Results Laboratory Tests 01/31/24 06:56 02/01/24 06:49 Assessment/Plan Assessment/Plan Impression: -total right hip arthroplasty -osteoarthritis -obesity -primary hypertension -diabetes mellitus -depression Plan: No change in a/P on 02/04/2024 -patient with minimal ambulation and no assistance at home. Patient currently pending transfer to halfway facility -regular insulin sliding scale -pain management -bowel regimen -social service consultation for sniff placement -PUD, DVT prophylaxis Plan discussed with: Patient Date of Service: Feb 07, 2024 Billing Provider: LEAH WILSON MD Common Visit Codes: [id number] INP/OBS CARE(MOD) LEAH WILSON MD Feb 07, 2024 15:18
[2024-02-08 05:00] VITALS: BP 128/60; PULSE 68; RESP 18; TEMP 97.9; O2SAT 98
[2024-02-08 07:17] LABS: Basophils # (auto) 0 10 ^3/uL (0-0.2); Basophils % (auto) 0.5 % (0.0-2.0); Eosinophils # (auto) 0.2 10 ^3/uL (0-0.8); Eosinophils % (auto) 2.4 % (0.0-7.0); Hematocrit 30.3 % (36.0-46.0); Lymphocytes # (auto) 2.5 10 ^3/uL (0.4-5.4); Lymphocytes % (auto) 28.3 % (10.0-50.0); Mean Corpuscular Hgb Conc. 33.1 g/dL (32.0-36.0); Mean Corpuscular Volume 84.5 fL (80.0-100.0); Monocytes # (auto) 1.2 10 ^3/uL (0-1.3); Monocytes % (auto) 13.1 % (0.0-12.0); Neutrophils # (auto) 4.9 10 ^3/uL (1.6-8.6); Neutrophils % (auto) 55.7 % (37.0-80.0); Platelet Count (auto) 443 10^3/uL (140-450); Red Blood Cells 3.59 10^6/uL (4.0-5.20); Red Cell Distribution Width 14.4 % (11.8-14.3); White Blood Cell 8.9 10^3/uL (4.4-10.8)
[2024-02-08 07:24] LABS: Alanine Aminotransferase 21 U/L (7-40); Albumin 3.5 g/dL (3.2-4.8); Alkaline Phosphatase 54 U/L (46-116); Anion Gap 6 (5-15); Aspartate Aminotransferase 30 U/L (13-40); BUN/Creatinine Ratio 18.5 (10.0-20.0); Blood Urea Nitrogen 15 mg/dL (9-23); Calcium 9.5 mg/dL (8.7-10.4); Carbon Dioxide 29 mmol/L (20-31); Chloride 102 mmol/L (98-107); Glucose 87 mg/dL (74-106); Potassium 4.4 mmol/L (3.5-5.1); Sodium 137 mmol/L (136-145)
[2024-02-08 07:25] LABS: Bilirubin, Total 0.4 mg/dL (0.2-1.0); Total Protein 7.2 g/dL (5.7-8.2)
[2024-02-08 09:00] VITALS: BP 133/62; PULSE 57; RESP 18; TEMP 98; O2SAT 95
[2024-02-08 13:00] VITALS: BP 117/57; PULSE 59; RESP 17; TEMP 97.4; O2SAT 99
[2024-02-08 17:00] VITALS: BP 124/53; PULSE 64; RESP 18; TEMP 98.9; O2SAT 95
[2024-02-08 20:00] VITALS: PULSE 65; RESP 16; O2SAT 97
[2024-02-08 21:00] VITALS: BP 125/57; PULSE 65; RESP 14; TEMP 99; O2SAT 97
--- NOTE | 2024-02-08 21:14 | DVHPN2 ---
Subjective seen by me during rounds, discussed with MDT< denied for SNF, will work in PT while inpatient, able to ambulate with moderate help so far Reviewed: Care Plan, H&P, Labs, Medications, Previous Orders, Radiology, Other (Consultation) Changes from previous H/P or p: No Changes General: Per HPI Objective Vitals Vital Signs Date Time Temp Pulse Resp B/P (MAP) Pulse Ox O2 Delivery O2 Flow Rate FiO2 02/08/24 17:00 98.9 64 18 124/53 (76) 95 98.9 02/08/24 08:30 Room Air* 0 21 Intake/Output Intake and Output 02/08/24 07:00 Intake Total 1150 ml Output Total 1150 ml Balance 0 ml Intake Oral 1100 ml IV Total 50 ml Output Urine Total 1150 ml General Appearance: Alert, Oriented X3, Cooperative, No acute distress HEENT: Atraumatic, PERRLA Lungs: Clear to auscultation, Normal air movement Cardiovascular: Regular rate, Normal S1, Normal S2 Abdomen: Normal bowel sounds, Soft, No tenderness Genitourinary: Other (Jones's catheter) Extremities: Other (Clean dressing of left hip with mild swelling/tenderness; no discharge/bleeding) Neuro: Normal speech, Cranial nerves 3-12 NL Psych/Mental Status: Mental status NL, Mood NL Medications Current Medications Medications Dose Ordered Sig/Khurram Route Start Time Stop Time Status Last Admin Dose Admin Enalapril Maleate 20 mg DAILY PO 01/29/24 10:00 02/08/24 09:55 20 MG Gabapentin 300 mg TID PO 01/29/24 14:00 02/08/24 15:22 300 MG Atenolol 50 mg DAILY PO 01/30/24 10:00 02/08/24 09:50 50 MG Atorvastatin Calcium 40 mg HS PO 01/29/24 22:00 02/07/24 21:57 40 MG Citalopram Hydrobromide 20 mg DAILY PO 01/30/24 10:00 02/08/24 09:47 20 MG Nifedipine 90 mg DAILY PO 01/30/24 10:00 02/08/24 09:57 90 MG Timolol Maleate 1 drop QAM EACHEYE 01/30/24 07:00 Sodium Chloride 10 ml Q8HR IV 01/29/24 14:00 02/08/24 14:02 10 ML Ondansetron HCl 4 mg Q6HP PRN IV 01/29/24 07:45 02/04/24 00:42 4 MG Docusate Sodium 100 mg Q12HR PO 01/29/24 10:00 02/08/24 09:47 100 MG Enoxaparin Sodium 40 mg DAILY SC 01/29/24 10:00 02/08/24 09:48 40 MG Diagnostic Test (Pha) 1 strip ACHS 01/29/24 11:30 02/08/24 17:00 1 STRIP Insulin Human Regular ACHS SC 01/29/24 11:30 02/08/24 17:00 2 UNITS Dextrose 50 ml UD PRN IV 01/29/24 07:45 Cefepime HCl 50 ml @ 12.5 mls/hr DAILY IV 01/29/24 10:00 02/08/24 10:23 12.5 MLS/HR Latanoprost 1 drop HS EACHEYE 01/29/24 22:00 02/07/24 21:59 1 DROP Tramadol HCl 50 mg Q8HP PRN PO 02/02/24 21:00 02/07/24 22:00 50 MG Laboratory Results Laboratory Tests 02/08/24 04:55 Chemistry Test 02/08/24 04:55 Albumin 3.5 g/dL (3.2-4.8) Calcium Level 9.5 mg/dL (8.7-10.4) Total Protein 7.2 g/dL (5.7-8.2) LFT Test 02/08/24 04:55 Alanine Aminotransferase (ALT) 21 U/L (7-40) Alkaline Phosphatase 54 U/L (46-116) Aspartate Amino Transferase (AST) 30 U/L (13-40) Total Bilirubin 0.4 mg/dL (0.2-1.0) Assessment/Plan Assessment/Plan Impression: -total right hip arthroplasty -osteoarthritis -obesity -primary hypertension -diabetes mellitus -depression Plan: No change in a/P on 02/04/2024 -patient with minimal ambulation and no assistance at home. Patient currently pending transfer to alf facility -regular insulin sliding scale -pain management -bowel regimen -social service consultation for sniff placement -PUD, DVT prophylaxis Plan discussed with: Patient Date of Service: Feb 08, 2024 Billing Provider: LEAH WILSON MD Common Visit Codes: [id number] INP/OBS CARE(MOD) LEAH WILSON MD Feb 08, 2024 21:14
[2024-02-09] VITALS (7 sets, daily range): BP systolic 121–149; BP diastolic 56–71; PULSE 63–95; RESP 14–18; TEMP 36.8; O2SAT 95–99
[2024-02-09] MEDS ORDERED: TRAM50TA2 PO (14:30)
== END 2024-02-09 20:30 | disposition home health service (06) | DRG 470 ==
LOC: SUR 06:38 → OVERFLOW 07:36 → WEST WING 15:09
PROVIDERS: ADMIT Orthopaedic Surgery Adult Reconstructive Orthopaedic Surgery; ATTEND Nurse Practitioner Acute Care
PROC: 8E0YXBZ Computer Assisted Procedure of Lower Extremity (ICD-10-PCS; 2024-01-29)
PROC: 0SRB0JZ Replacement of Left Hip Joint with Synthetic Substitute, Open Approach (ICD-10-PCS; principal; 2024-01-29 07:29)
PROC: 5A09357 Assistance with Respiratory Ventilation, Less than 24 Consecutive Hours, Continuous Positive Airway Pressure (ICD-10-PCS; 2024-01-30)
DX: M16.12 Unilateral primary osteoarthritis, left hip (principal); N17.9 Acute kidney failure, unspecified; I10 Essential (primary) hypertension; H40.9 Unspecified glaucoma; E66.01 Morbid (severe) obesity due to excess calories; E11.40 Type 2 diabetes mellitus with diabetic neuropathy, unspecified; E87.5 Hyperkalemia; F32.A Depression, unspecified; E78.5 Hyperlipidemia, unspecified; E88.810 Metabolic syndrome; R33.9 Retention of urine, unspecified; Z96.641 Presence of right artificial hip joint; D64.9 Anemia, unspecified; Z88.2 Allergy status to sulfonamides; Z68.39 Body mass index [BMI] 39.0-39.9, adult
CPT/HCPCS: 36415; 72170; 73501; 80048; 80053; 82962; 85025; 86850; 86900; 86901; 94660; 97110; 97116; 97163; 97530; G0378; J0131; J0171; J1100; J1815; J1885; J2405; J2704; J3490

== ENCOUNTER 2024-11-05 07:11 | Emergency (ER) | payer MEDICARE, OTHER ==
[~2024-11-05] VITALS: Ht 167.6 cm; Wt 104.2 kg
[~2024-11-05 07:11] MED LIST changes: +TRAM50TA2 PO
--- NOTE | 2024-11-05 07:37 | ED.PDOC ---
Musculoskeletal HPI Comments A 74 YEAR OLD FEMALE BROUGHT IN BY PARENT PRESENTS TO THE ED WITH COMPLAINT OF LOWER BACK PAIN . PATIENT HAS BEEN HAVING LEFT-SIDED LOWER BACK PAIN PAIN FOR THE PAST 4 DAYS RADIATING DOWN TO THE LEFT LEG. PATIENT RATES THE PAIN 8/10 SHARP, INTERMITTENT WITH NO ASSOCIATED EXACERBATING OR RELIEVING FACTORS. PATIENT DENIES ANY ASSOCIATED INJURY OR RECENT FALL. PATIENT STATES SHE DID HAVE LEFT HIP REPLACEMENT JANUARY 2024. PATIENT DENIES FEVER, CHILLS, EAR PULLING, COUGH, CHANGES IN BEHAVIOR, DECREASE IN APPETITE, DECREASE IN URINARY OUTPUT, NAUSEA, VOMITING, OR OTHER COMPLAINTS. NO OTHER SYMPTOMS OR MODIFYING FACTORS AT THIS TIME. AT TIME OF EXAM, PATIENT IS ALERT, ACTIVE, AND PLAYFUL. Chief Complaint: Lower Extremity Time Seen by MD: 07:34 Reviewed Notes: Nurses Notes, Medications, Allergies Allergies: Coded Allergies: Sulfa Antibiotics (Verified Allergy, Intermediate, Itchiness, 01/27/24) Home Meds Active Scripts Tramadol HCl (Tramadol HCl) 50 Mg Tab, 50 MG PO BID, #20 TAB Prov:FREDY MEMBRENO PA 11/05/24 Tramadol Hcl (Tramadol Hcl) 50 Mg Tab, 50 MG PO Q8HP PRN for 3 Days, #9 TAB Prov:ARMIN DAWN RADIO REPORTER 02/09/24 Reported Medications Enalapril Maleate (Enalapril Maleate) 2.5 Mg Tab, 20 MG PO BID for 30 Days, MG 01/29/24 Latanoprost (LATANOPROST) 0.005 % Kya, 1 DROP EACHEYE QPM, #7.5 ML 3 Refills 01/27/24 Timolol Maleate (Timolol Maleate Ophthalmi) 0.5 % Kya, 1 DROP EACHEYE QAM, #5 ML 5 Refills 01/27/24 Escitalopram Oxalate (ESCITALOPRAM OXALATE) 10 Mg Tab, 1 TAB PO DAILY, #30 TAB 3 Refills 01/27/24 Dapagliflozin Propanediol (Farxiga) 10 Mg Tab, 10 MG PO, TAB 01/27/24 Metformin Hydrochloride (Metformin Hcl) 500 Mg Tab, 500 MG PO IBID for 30 Days, MG 01/27/24 Enalapril Maleate (Enalapril Maleate) 2.5 Mg Tab, 20 MG PO DAILY for 30 Days, MG 01/27/24 Nifedipine (Nifedipine Er) 90 Mg Tab, 1 TAB PO DAILY, #30 TAB 5 Refills 01/27/24 Atorvastatin Calcium (Lipitor) 40 Mg Tab, 1 TAB PO QPM, #90 TAB 3 Refills 01/27/24 Trazodone Hcl (Trazodone Hcl) 50 Mg Tab, 50 MG PO, MG 01/27/24 Gabapentin (Gabapentin) 300 Mg Cap, 300 MG PO TID for 30 Days, MG 01/27/24 Atenolol (Atenolol) 50 Mg Tab, 50 MG PO DAILY for 30 Days, MG 01/27/24 Information Source: Patient Mode of Arrival: Ambulatory Location: Left Extremity Location: Back, Hip Timing: Days Prehospital treatment: None Severity: Moderate Able to Move Extremity: Yes Bear Weight: Fully Pain: Moderate Hand Dominance: Right Circumstances: Unknown Onset of Symptoms: Spontaneous Symptoms: Pain DVT Risk Factors: NONE Last Tetanus: UTD Associated signs and symptoms: Back pain, Hip pain Past Medical History PAST MEDICAL HISTORY: DM, HTN Surgical History (Other): 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 Family History Family History: Reviewed,noncontributory to illness Social History Smoker: Non-Smoker Alcohol: Denies ETOH Use Drugs: Denies Drug Use Lives In: Home Constitutional: denies: chills, diaphoresis, fatigue, fever, malaise, sweats, weakness, others EENTM: denies: blurred vision, double vision, ear bleeding, ear discharge, ear drainage, ear pain, ear ringing, eye pain, eye redness, hearing loss, mouth pain, mouth swelling, nasal discharge, nose bleeding, nose congestion, nose pain, photophobia, tearing, throat pain, throat swelling, voice changes, others Respiratory: denies: cough, hemoptysis, orthopnea, SOB at rest, shortness of breath, SOB with excertion, stridor, wheezing, others Cardiovascular: denies: chest pain, dizzy spells, diaphoresis, Dyspnea on exertion, edema, irregular heart beat, left arm pain, lightheadedness, palpitations, PND, syncope, others Gastrointestinal: denies: abdomen distended, abdominal pain, blood streaked bowels, constipated, diarrhea, dysphagia, difficulty swallowing, hematemesis, melena, nausea, poor appetite, poor fluid intake, rectal bleeding, rectal pain, vomiting, others Genitourinary: denies: abnormal vagina bleeding, burning, dyspareunia, dysuria, flank pain, frequency, hematuria, incontinence, pain, , vagina discharge, urgency, others Neurological: denies: dizziness, fainting, headache, left sided numbness, left sided weakness, numbness, paresthesia, pre-existing deficit, right sided numbness, right sided weakness, seizure, speech problems, tingling, tremors, weakness, others Musculoskeletal: reports: back pain, joint pain, muscle pain Integumetry: denies: bruises, change in color, change in hair/nails, dryness, laceration, lesions, lumps, rash, wounds, others Allergic/Immunocompromised: denies: Difficulty Healing, Frequent Infections, Hives, Itching, others Endocrine: denies: excessive hunger, excessive sweating, excessive thirst, excessive urination, flushing, intolerance to cold, intolerance to heat, unexplained weight gain, unexplained weight loss, others Psychiatric: denies: anxiety, bipolar disorder, depression, hopeless, panic disorder, schizophrenia, sleepless, suicidal, others All Other Systems: Reviewed and Negative (SEE HPI) Physical Exam General Appearance: No Apparent Distress, Normal HEENT: Normal ENT Inspection, PERRL/EOMI, Pharynx Normal, TMs Normal Neck: Full Range of Motion, Non-Tender, Normal, Normal Inspection Respiratory: Chest Non-Tender, Lungs Clear, No Accessory Muscle Use, No Respiratory Distress, Normal Breath Sounds Cardiovascular: No Edema, No JVD, No Murmur, No Gallop, Normal Peripheral Pulses, Regular Rate/Rhythm Breast Exam: Deferred Gastrointestinal: No Organomegaly, Non Tender, No Pulsatile Mass, Normal Bowel Sounds, Soft Genitalia: Deferred Pelvic: Deferred Rectal: Deferred Extremities: No calf tenderness, Normal capillary refill, Normal inspection, Normal range of motion, No pedal edema, Tender (LEFT LATERAL HIP, NO BONY TENDERNESS, SWELLING ND DEFORMITY. ) Musculoskeletal : Location: Bilateral Extremity Location: Back Apperance: Tenderness (MUSCLE SPASM ON LOWER BACK, NO BONY TENDERNESS, SWELLING AND DEFORMITY. 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 Was a procedure done?: No Differential Diagnosis EXT Differential Diagnosis: Fracture, Dislocation, Contusion, Strain, Bursitis Other Differential Diagnosis SCIATICA DJD LUMBAR RADICULOPATHY X-Ray, Labs, Meds, VS Vital Signs Date Time Temp Pulse Resp B/P (MAP) Pulse Ox O2 Delivery O2 Flow Rate FiO2 11/05/24 07:38 98.1 67 18 142/72 (95) 95 98.1 11/05/24 07:38 67 18 95 Room Air* 0 21 11/05/24 07:13 98.1 65 18 129/48 98 98.1 [place] [address] Ph: [phone] DIAGNOSTIC IMAGING Diagnostic Imaging Report : [id number] Signed PATIENT: ARNAUD RUVALCABA ACCT: [id number] UNIT: [id number] : 1950 LOC: ER ROOM / BED: / AGE / SEX: 74 / F ADM STATUS: REG ER SERVICE 0729 ORDERING PHYSICIAN: FREDY MEMBRENO PROCEDURE(s): LUMB2 - LUMBAR SPINE 3 VIEW REASON: BUTTOCK PAIN TO LEFT LOWER LEG ORDER NUMBER(s): [id number], ACCESSION NUMBER(s): [id number] CLINICAL INFORMATION: Pain in the buttock extending to the left lower extremity. TECHNIQUE: 3 views of the lumbar spine were obtained. COMPARISON: XY L HIP COMPLETE XRAY on DOS: 11/05/24, XY PELVIS AP on DOS: 01/29/24, XY L HIP 1V XRAY on DOS: 01/29/24 FINDINGS: Mild grade 1 anterolisthesis of L3 on L4 and L4 on L5. Possible minimal retrolisthesis of T12 on L1. Vertebral body heights are maintained. Posterior elements are intact. No evidence of acute fracture. Moderate to severe disc space narrowing at L3-L4, L4-L5, and L5-S1, with associated endplate sclerosis and endplate spurring. Multilevel moderate to marked facet hypertrophy, greatest at L3-L4, L4-L5, and L5-S1. Paraspinal soft tissues are grossly unremarkable. There is dense calcification of the abdominal aorta and common iliac arteries. IMPRESSION: 1. No evidence of acute fracture. 2. Degenerative disc disease and facet disease in the lumbar spine as detailed above. 3. Mild anterolisthesis of L3 on L4 and L4 on L5. Possible minimal retrolisthesis of T12 on L1. ATED BY: ONEIL MILLER DO DICTATED DATE/TIME: 11/05/24806 SIGNED BY: ONEIL MILLER DO SIGNED DATE/TIME: 11/05/24806 CC: [place] [id number] Ph: [phone] DIAGNOSTIC IMAGING Diagnostic Imaging Report : [id number] Signed PATIENT: ARNAUD RUVALCABA ACCT: [id number] UNIT: [id number] : 1950 LOC: ER ROOM / BED: / AGE / SEX: 74 / F ADM STATUS: REG ER SERVICE 8 ORDERING PHYSICIAN: FREDY MEMBRENO PROCEDURE(s): LHIP - L HIP COMPLETE XRAY REASON: LEFT HIP PAIN, HX OF LEFT HIP SURGERY 9 MONTHS AGO ORDER NUMBER(s): [id number], ACCESSION NUMBER(s): [id number] X-ray left hip REASON FOR EXAM: LEFT HIP PAIN, HX OF LEFT HIP SURGERY 9 MONTHS AGO Comparison 01/29/2024 FINDINGS: Left hip prosthesis well aligned. There is some dystrophic calcification in the surrounding soft tissues. IMPRESSION: 1. No change in positioning of the left hip prosthesis compared to previous exam. There is now some dystrophic calcification in the soft tissues surrounding the left hip joint ATED BY: SILVIA TINEO MD DICTATED DATE/TIME: 11/05/24807 SIGNED BY: SILVIA TINEO MD SIGNED DATE/TIME: 11/05/24807 CC: X-Ray, Labs, Meds, VS Comment COURSE: EXTERNAL MEDICAL RECORDS REVIEWED: [NONE] INDEPENDENT HISTORIANS: [NONE] SOCIAL DETERMINANTS OF HEALTH: [NONE] LABS ORDERED: NONE REVIEWED AND INTERPRETED RESULTS: NONE IMAGING ORDERED: LEFT HIP X-RAY, LUMBAR SPINE X-RAY TREATMENTS ORDERED: NORCO 5/325 PO PROCEDURES PERFORMED: NONE CRITICAL CARE TIME: NONE I HAVE DISCUSSED THE PATIENT WITH THE ATTENDING PHYSICIAN, DR MALLOY HE AGREES WITH THE PATIENT'S PLAN OF CARE AND DISPOSITION. BASED ON HISTORY OF PRESENT ILLNESS, AND PHYSICAL EXAM, PATIENT WILL BE DISCHARGED HOME. DISCUSSED PLAN FOR DISCHARGE HOME WITH RX:ULTRAM 50MG. MEDICATION WARNINGS GIVEN. SHARED DECISION MAKING: DISCUSSED WITH PATIENT THAT THEIR WORKUP WAS NORMAL. PATIENT INSTRUCTED TO FOLLOW UP WITH PRIMARY CARE PROVIDER IN 1-2 DAYS FOR RE- EVALUATION OF SYMPTOMS. PATIENT VERBALIZES UNDERSTANDING TO RETURN TO ED FOR NEW OR WORSENING SYMPTOMS OR IF FOLLOW UP WITH PCP CANNOT BE OBTAINED. PATIENT FEELS COMFORTABLE GOING HOME AT THIS TIME. ALL QUESTIONS ADDRESSED AT TIME OF DISCHARGE. Time of 1ST Reevaluation: 08:40 Reevaluation 1ST: Improved Patient Education/Counseling: Diagnosis, Treatment, Need For Follow Up Family Education/Counseling: Diagnosis, Treatment, Need For Follow Up Medical Screening: No EMC Exist At This Time Departure 1 Departure Time of Disposition: 08:40 Impression: Primary Impression: DDD (degenerative disc disease), lumbosacral Qualified Codes: M51.372 - Other intervertebral disc degeneration, lumbosacral region with discogenic back pain and lower extremity pain Additional Impression: Left lumbar radiculopathy Disposition: 01 HOME / SELF CARE / HOMELESS Condition: Stable Additional Instructions: F/U PCP IN 2 DAYS RECHECK. IF CONDITION BECOME WORSE, RETURN TO ED SHARIFA. e-Prescriptions Tramadol HCl (Tramadol HCl) 50 Mg Tab 50 MG PO BID, #20 TAB Prov: FREDY MEMBRENO 11/05/24 Discharged With: Self, Relative Critical Care Note Critical Care Time?: No Stability Stability form required: No Heart Score Heart Score: Heart Score Response (Comments) Value History N/A 0 EKG N/A 0 Age N/A 0 Risk Factors N/A 0 Troponin N/A (1 THING) 0 Total 0 I personally scribed for FREDY MEMBRENO ([email or web address]) on 11/05/24 at 07:37. Electronically submitted by Toy Bowles ([email or web address]). I personally scribed for FREDY MEMBRENO ([email or web address]) on 11/05/24 at 08:00. Electronically submitted by Toy Bowles ([email or web address]). I personally scribed for FREDY MEMBRENO ([email or web address]) on 11/05/24 at 08:17. Electronically submitted by Toy Bowles ([email or web address]). FREDY MEMBRENO Nov 05, 2024 07:37
[2024-11-05 07:38] VITALS: BP 142/72; PULSE 67; RESP 18; TEMP 98.1; O2SAT 95
--- NOTE | 2024-11-05 08:09 | DVH ---
CLINICAL INFORMATION: Pain in the buttock extending to the left lower extremity. TECHNIQUE: 3 views of the lumbar spine were obtained. COMPARISON: XY L HIP COMPLETE XRAY on DOS: 11/05/24, XY PELVIS AP on DOS: 01/29/24, XY L HIP 1V XRAY on DOS: 01/29/24 FINDINGS: Mild grade 1 anterolisthesis of L3 on L4 and L4 on L5. Possible minimal retrolisthesis of T 12 on L1. Vertebral body heights are maintained. Posterior elements are intact. No evidence of acute fracture. Moderate to severe disc space narrowing at L3-L4, L4-L5, and L5-S1, with associated endplat e sclerosis and endplate spurring. Multilevel moderate to marked facet hypertrophy, greatest at L3-L 4, L4-L5, and L5-S1. Paraspinal soft tissues are grossly unremarkable. There is dense calcification o f the abdominal aorta and common iliac arteries. IMPRESSION: 1. No evidence of acute fracture. 2. Degenerative disc disease and facet disease in the lumbar spine as detailed above. 3. Mild anterolisthesis of L3 on L4 and L4 on L5. Possible minimal retrolisthesis of T12 on L1.
--- NOTE | 2024-11-05 08:10 | DVH ---
X-ray left hip REASON FOR EXAM: LEFT HIP PAIN, HX OF LEFT HIP SURGERY 9 MONTHS AGO Comparison 01/29/2024 FINDINGS: Left hip prosthesis well aligned. There is some dystrophic calcification in the surrounding soft tissues. IMPRESSION: 1. No change in positioning of the left hip prosthesis compared to previous exam. There is now some d ystrophic calcification in the soft tissues surrounding the left hip joint
[2024-11-05] MEDS ORDERED: TRAM-626 PO (08:22)
[2024-11-05] MEDS: HYDROcodone-ACET 5/325MG TAB PO ONE (08:23)
== END 2024-11-05 08:32 | disposition home or self-care (01) ==
LOC: ER 07:11
DX: M51.372 Other intervertebral disc degeneration, lumbosacral region with discogenic back pain and lower extremity pain (principal); M43.16 Spondylolisthesis, lumbar region; M47.26 Other spondylosis with radiculopathy, lumbar region; I10 Essential (primary) hypertension; E11.9 Type 2 diabetes mellitus without complications; Z79.84 Long term (current) use of oral hypoglycemic drugs; Z79.899 Other long term (current) drug therapy; Z96.642 Presence of left artificial hip joint; Z88.2 Allergy status to sulfonamides
CPT/HCPCS: 72100; 73502